=== PATIENT | female | born 1955 | race Caucasian/White ===

== ENCOUNTER 2022-07-21 12:57 | Outpatient (CLI) | payer MEDICARE, BC, SELFPAY ==
[2022-07-21 10:41] LABS: Albumin* 4.1 g/dL (3.3-5.0); Chloride* 106 mmol/L (96-114); Potassium* 4.9 mmol/L (3.6-5.1); Sodium* 139 mmol/L (135-149)
[2022-07-21 10:43] LABS: Creatinine* 0.9 mg/dL (0.5-1.5); Estimated Glomerular Filt Rate 70 ml/min
[2022-07-21 10:44] LABS: Alkaline Phosphatase* 113 U/L (40-150); Aspartate Amino Transferase* 28 U/L (12-35); Bilirubin Total* 0.4 mg/dL (0.1-1.5); Blood Urea Nitrogen* 19 mg/dL (7-30); Carbon Dioxide* 24 mmol/L (20-32); Glucose* 100 mg/dL (60-115); Total Protein* 6.7 g/dL (6.0-8.3); Triglycerides* 215 mg/dL (40-149)
[2022-07-21 10:45] LABS: Alanine Aminotransferase* 22 U/L (4-35); Calcium* 9.5 mg/dL (8.4-10.6); HDL Cholesterol* 53 mg/dL (>=50)
[2022-07-21 10:58] LABS: Vitamin D 25 Hydroxy* 35 ng/mL (30-80)
[2022-07-21 19:10] LABS: Cholesterol* 206 mg/dL (90-199); LDL Cholesterol Calculated 110 mg/dL (<100)
== END 2022-07-21 12:58 | disposition home or self-care (01) ==
PROVIDERS: PCP Family Medicine; Visit Provider Family Medicine
DX: E03.9 Hypothyroidism, unspecified (principal); M85.80 Other specified disorders of bone density and structure, unspecified site; Z13.6 Encounter for screening for cardiovascular disorders
CPT/HCPCS: 80053; 80061; 82306; 84443

== ENCOUNTER 2022-08-03 09:09 | Outpatient (CLI) | payer MEDICARE, BC, SELFPAY ==
[2022-08-10 08:48] LABS: Cryptosporidium by PCR Not Detected; Cyclospora cayetanensis by PCR Not Detected; Dientamoeba fragilis by PCR Not Detected; Entamoeba histolytica by PCR Not Detected; Giardia by PCR Not Detected
[2022-08-10 14:38] LABS: Ova and Parasite, Fecal Negative (Negative)
== END 2022-08-03 09:10 | disposition home or self-care (01) ==
LOC: NFLDREF 09:13
PROVIDERS: PCP Family Medicine; Visit Provider Family Medicine
DX: R19.7 Diarrhea, unspecified (principal)
CPT/HCPCS: 87045; 87046; 87177; 87209; 87427; 87505

== ENCOUNTER 2023-09-19 08:27 | Outpatient (CLI) | payer MEDICARE, BC, SELFPAY | END 2023-09-19 08:28 | disposition home or self-care (01) | LOC: NFLDREF 10-02 08:18 | PROVIDERS: PCP Family Medicine; Referring Provider Family Medicine; Visit Provider Family Medicine | DX: E78.5 Hyperlipidemia, unspecified (principal); E03.9 Hypothyroidism, unspecified; I10 Essential (primary) hypertension; Z79.899 Other long term (current) drug therapy | CPT/HCPCS: 80053; 80061; 82306; 84439; 84443 ==

== ENCOUNTER 2023-11-24 14:51 | Outpatient (CLI) | payer MEDICARE, BC, SELFPAY ==
--- NOTE | 2023-11-24 14:00 | XR_ITS ---
Patient: BRIANA TAYLOR Facility:?[facility] Patient ID:?[id number] Site Patient ID:?[id number]. Site :?[id number] Study:?DEXA-Bone Density -11/24/2023 3:50:12 PM Ordering Physician:JEROD Final Report: Please note the prior exam is not relevant to the current exam as the heigh/weight of the patient was entered incorrectly on the prior study thus negating relevant comparison information. Current height (in): 67.5. Weight (lb): 220. Menopause age: 49. Ethnicity: White. 1. Have you had a previous hip or vertebral fracture? No. 2. Have you had any fractures during your adult life which did not result from significant trauma (e.g., auto accident)? No. 3. Did either of your parents have a hip fracture? No. 4. Do you smoke? No. 5. Have you ever taken Glucocorticoids? No. 6. Do you have rheumatoid arthritis? No. 7. Do you have secondary osteoporosis? No. 8. Do you drink 3 or more alcoholic drinks per day? No. 9. Are you being treated for osteoporosis? No. 10. Have you ever taken any of the following medications: Actonel, Evista, Fosamax, Miacalcin, Reclast, Boniva, Forteo, HRT (i.e. estrogen/hormone therapy), Protelos, Prolia, Vitamin D, Calcium, other ? please specify. ANSWER: Yes, vitamin D. 11. Do you have any of the following medical conditions: Anorexia or bulimia, asthma or emphysema, end stage renal disease, hyperparathyroidism, any seizure disorders, cancer, inflammatory bowel diseases, hysterectomy, other ? please specify. ANSWER: No. 12. What was your maximum height (inches)? 67.5. 13. Do you perform weight bearing exercise regularly? Yes. 14. Do you regularly consume dairy products? Yes. 15. Do you drink caffeinated beverages? Yes. 16. At what age did your period start? 12. 17. Are you premenopausal? No. 18. How many full term pregnancies have you had? 2. 19. Have you ever missed your period for more than 6 months in a row (not including or menopause)? No. TECHNIQUE: Bone mineral density study was performed using the [employer]. FINDINGS: The results of the study expressed as bone mineral density (BMD) are as follows: Lumbar spine L1 to L4: BMD: 1.070 g/cm2. T-score: 0.2. Z-score: 2.3. Neck Left: BMD: 0.628 g/cm2. T-score: -2.0. Z-score: -0.2. Right: BMD: 0.688 g/cm2. T-score: -1.4. Z-score: 0.3. Total Left: BMD: 0.772 g/cm2. T-score: -1.4. Z-score: 0.1. Right: BMD: 0.766 g/cm2. T-score: -1.4. Z-score: 0.0. IMPRESSION: Osteopenia. *Comparison exams done prior to 12/2019 were performed on different unit, [employer]. COMPARISON: Compared with scan of 07/08/2021, the bone mineral density has increased by 2.9 percent at the spine. Compared with scan of 03/26/2019, the bone mineral density has decreased by 7.7 percent at the spine. FRAX 10-year Fracture Risk Major Osteoporotic Fracture: 11 percent Hip Fracture: 1.8 percent Reported Risk Factors: [place] () Neck BMD= 0.628, BMI= 33.9 Joe Gruber M.D. Diagnostic Radiologist [email or web address] D& Transcribed: 3:20 p.m. DESTIN/Dictated by: Joe Gruber MD @ 11/28/2023 8:33:00 AM DESTIN/Dictated by: Joe Gruber MD @ 11/28/2023 8:33:00 AM DESTIN/Dictated by: Joe Gruber MD @ 11/28/2023 8:33:00 AM Signed by:Liat Gruber MD @11/30/2023 11:12:09 AM (Electronic Signature)
--- OUTSIDE RECORDS SUMMARY | 2023-11-24 14:53 | XMS_ITS | Encounter Summary ---
Author Name Unknown Organization [facility] Address [address] [place] [address] Care Team Providers Care After School Program Coordinator Name Role Phone Unavailable Primary Care Provider Unavailabl e Reason for Referral * MRI/CAT/PET Scan (Routine) - Closed Specialty Diagnoses / Procedures Referred By Contac t Referred To Contact Radiology Diagnoses Hernia Abdominal Wall Procedures CT Abdomen Pelvis with IV Contrast CT Abdomen Pelvis without IV Contrast Rosa Flores M.D. [address] [place] [phone] [facility] Referral ID Status Reason Start Date Expiration Date Visits Re quested Visits Authorized [id number] Closed 09/29/2023 09/28/2024 1 1 Reason for Visit * MRI/CAT/PET Scan (Routine) - Closed Specialty Diagnoses / Procedures Referred By Contac t Referred To Contact Radiology Diagnoses Hernia Abdominal Wall Procedures CT Abdomen Pelvis with IV Contrast CT Abdomen Pelvis without IV Contrast Rosa Flores M.D. [address] [place] [phone] [facility] Referral ID Status Reason Start Date Expiration Date Visits Re quested Visits Authorized [id number] Closed 09/29/2023 09/28/2024 1 1 Encounter Details Date Type Department Care Team (Late st Contact Info) Description 10/10/2023 10:39 AM CDT - 10/10/2023 11:59 PM CDT Hospital Encounter Department of Radiology, [facility], in [place], [place] [address] [place] [phone] Rosa Flores M.D. [address] [place] [phone] Hernia Abdominal Wall Discharge Disposition: Home or Self Care Social History Tobacco Use Types Packs/Day Years Used Date Smoking Tobacco: Former Cigarettes 1 11 0 01/03/1972 - 01/04/1983 Passive Smoke Exposure: Never Smokeless Tobacco: Never Comments:smoked from then not again Alcohol Use Standard Drinks/Week Comments No 0 (1 standard drink = 0.6 oz pur e alcohol) Humiliation, Afraid, Rape, and Kick questionnair e Answer Date Recorded Within the last year, have y ou been afraid of your partner or ex-partner? No 03/08/2022 Within the last year, have y ou been humiliated or emotionally abused in other ways by your partner or ex-partner? No Within the last year, have y ou been kicked, hit, slapped, or otherwise physically hurt by your partner or ex-partner? No 03/08/2022 Within the last year, have y ou been raped or forced to have any kind of sexual activity by your partner or ex-partner? No 03/08/2022 Social Connection and Isolat ion Panel [NHANES] Answer Date Recorded In a typical week, how many times do you talk on the phone with family, friends, or neighbors? Three times a week 03/08/2022 How often do you get togethe r with friends or relatives? Twice a week 03/08/2022 How often do you attend chur or yarsani services? Never 03/08/2022 Do you belong to any clubs o r organizations such as buddhist groups, unions, fraternal or athletic groups, or school groups? Yes 03/08/2022 How often do you attend meet ings of the clubs or organizations you belong to? More than 4 times per year 03/08/2022 Are you , , di vorced, , never , or living with a partner? 03/08/2022 AUDIT-C Answer Date Recorded Q1: How often do you have a drink containing alc ohol? Never 03/08/2022 Average Number of Drinks Not on file 022 Frequency of Binge Drinking Not on file 02/16 Overall Financial Resource Strain (CARDIA) Answe r Date Recorded How hard is it for you to pa y for the very basics like food, housing, medical care, and heating? Not hard at all 04/05/2023 [facility] of Occupat ional Health - Occupational Stress Questionnaire Answer Date Recorded Do you feel stress - tense, restless, nervous, or anxious, or unable to sleep at night because your mind is troubled all the time - these days? Not at all 03/08/2022 Exercise Vital Sign Answer Date Recorde d On average, how many days pe r week do you engage in moderate to strenuous exercise (like a brisk walk)? 6 days 04/05/2023 On average, how many minutes do you engage in exercise at this level? 40 min 04/05/2023 Hunger Vital Sign Answer Date Recorded Within the past 12 months, y ou worried that your food would run out before you got the money to buy more. Never true 04/05/20 23 Within the past 12 months, t he food you bought just didn't last and you didn't have money to get more. Never true 04/05/2023 PRAPARE - Transportation Answer Date Re corded In the past 12 months, has l ack of transportation kept you from medical appointments or from getting medications? No 03/18 In the past 12 months, has l ack of transportation kept you from meetings, work, or from getting things needed for daily living? No 04/05/2023 Nutrition Answer Date Recorded Nutrition: EVOO Fat Source Yes 04/05 On average, how many serving s of fruits and vegetables do you eat per day (serving size is equal to 1 cup or approximately the size of a tennis ball)? 0-2 04/05/2023 Dental Answer Date Recorded Dental: Regular Dentist Yes 03/08/20 Employment Answer Date Recorded Employment status Retired 04/05/2023 Housing Stability Answer Date Recorded What is your living situation today? I have a [facility] place to live 04/05/2023 Education Answer Date Recorded What is the highest level of school you have completed or the highest degree you have received? Bachelor's degree (e.g., BA, AB, BS) 06/21/2019 Sex and Gender Information Value Date Recorded Sex Assigned at Female 05/25/2018 8:31 PM METHODS SPECIALIST Gender Identity Female 05/25/2018 8:31 PM METHODS SPECIALIST Sexual Orientation Straight 05/25/2018 8: 31 PM METHODS SPECIALIST documented as of this encounter Medications at Time of Discharge Medication Sig Dispensed Refills Start Date End Date acetaminophen (TYLENOL) 325 mg tablet Take 2 tablets (650 mg total) by mouth every 6 (six) hours as needed for pain. 06/16/2019 atenolol (TENORMIN) 50 mg tablet Take 1 tablet by mouth daily. 08/04/2015 calcium carbonate 1000 mg (400 mg calcium) chewable tablet Chew 1 tablet daily. cholecalciferol (VITAMIN D3) 2,000 Unit capsule Take 1 capsule by mouth daily. 08/04/2015 cranberry extract (CRAN-MAX) 500 mg capsule capsule Take 200 mg by mouth daily. 04/08/2022 ketoconazole (NIZORAL) 2 % creamIndications:Dermat itis Seborrheic Apply topically as directed. otic 15 g 2 10/15/2020 ketoconazole (NIZORAL) 2 % shampooIndications:Derm atitis Seborrheic Apply topically 3 (three) times a week. Apply to damp skin, lather, leave on 5 minutes, and rinse 120 mL 6 02/27/2021 L.acidoph-L.bulg-B.bif- S.therm (BACID) 1 billion cell- 250 mg per tablet Take 1 tablet by mouth 2 (two) times a day with meals. levothyroxine (SYNTHROID, LEVOTHROID) 125 mcg tablet Take 125 mcg by mouth every morning before breakfast. 2 11/11/2018 omeprazole (PriLOSEC) [address] capsule Take 1 capsule by mouth daily. 08/04/2015 psyllium (METAMUCIL) 0.52 gram capsule Take 0.52 g by mouth as needed. 2 in the evening triamcinolone (KENALOG) 0.1 % creamIndications:Dermat itis Seborrheic Apply 1 application topically 2 (two) times a day as needed (Rash). Otic. Apply to itchy areas in the ear twice daily as needed 60 g 1 10/15/2020 documented as of this encounter Plan of Treatment Upcoming Encounters Date Type Department Care Team (Latest Contact Info) Description 11/29/2023 7:40 AM CDT Hospital Encounter Post Anesthesia Care Unit in [place], [place] [address] [place] [phone] Marcial Macdonald M.D. [address] [place] [phone] 11/29/2023 7:40 AM CDT - 11/29/2023 11:56 AM CDT Surgery [facility] [address] [place] [phone] Marcial Macdonald M.D. [address] [place] [phone] ROBOTIC-ASSISTED REPAIR HERNIA VENTRAL Scheduled Procedures Name Priority Associated Diagnoses Date/Ti me ROBOTIC-ASSISTED REPAIR MINOR IA VENTRAL Hernia Ventral 11/29/2023 7:40 AM CDT documented as of this encounter Procedures Procedure Name Priority Date/Time Associated Diagnosis Comments CT ABDOMEN PELVIS WITH IV CONTRAST RAD - Routine (most inpatients and all outpatients) 10/10/2023 11:53 AM CDT Hernia Abdominal Wall documented in this encounter Results * CT Abdomen Pelvis with IV Contrast (10/10/2023 11:53 AM CDT) Anatomical Region Laterality Modality Abdomen, Pelvis, Abdominal R ST LOS, Abdominal ARZ LOS, Abdominal FLA LOS N/A Computed Tomograp hy, Computed Tomography 10/10/2023 11:4 7 AM CDT Impressions 10/10/2023 12:11 PM CDT 1. Diastases and thinning of the rectus muscles with several small fat- containing midline ventral hernias. Narrative 10/10/2023 12:11 PM CDT EXAM: ??CT ABDOMEN PELVIS WITH IV CONTRAST COMPARISON: ??06/12/2019 FINDINGS: ?? Mild bronchiectasis in the lung bases. Cholecystectomy. Fatty infiltration in the pancreas. Thinning and diastases of the rectus muscles. Small fat-containing umbilical hernia and lobulated paraumbilical hernia. More superiorly in the midline there are some tiny fat-containing defects. Degenerative changes in the spine. Otherwise negative. Procedure Note Mika Day M.D. - 10/10/2023 EXAM: CT ABDOMEN PELVIS WITH IV CONTRAST COMPARISON: 06/12/2019 FINDINGS: Mild bronchiectasis in the lung bases. Cholecystectomy. Fatty infiltration in the pancreas. Thinning and diastases of the rectus muscles. Small fat-containingumbilical hernia and lobulated paraumbilical hernia. More superiorly inthe midline there are some tiny fat-containing defects. Degenerative changes in the spine. Otherwise negative. IMPRESSION: 1. Diastases and thinning of the rectus muscles with several smallfat-containing midline ventral hernias. Rosa Flores M.D. IMG CT PROCEDURE S documented in this encounter Visit Diagnoses Diagnosis Hernia Abdominal Wall Hernia Ventral documented in this encounter Administered Medications Inactive Administered Medications - up to 3 most recent administrations Medication Order MAR Action Action Date Dose Rate Site iohexoL 300 mg iodine/mL solution 1-200 mL (OMNIPAQUE) 1-200 mL, intravenous, Once in imaging, contrast, Starting on Tue10/10/23 at 1101, For 1 dose, Imaging Protocol Orders, Dose per Radiant Medication Guidelines Given 10/10/2023 11:33 AM CDT 140 mL sodium chloride (PF) 0.9 % injection 1-100 mL 1-100 mL, intravenous, Once, On 10/10/23 at 1130, For 1 dose, Imaging Protocol Orders, Dose per Radiant Medication Guidelines Given 10/10/2023 11:34 AM CDT 50 mL documented in this encounter
--- OUTSIDE RECORDS SUMMARY | 2023-11-24 14:53 | XMS_ITS | Encounter Summary ---
Author Name Unknown Organization [facility] Address [address] [place] [address] Care Team Providers Care Electrical Cad Technician Name Role Phone Unavailable Primary Care Provider Unavailabl e Reason for Referral * MRI/CAT/PET Scan (Routine) - Closed Specialty Diagnoses / Procedures Referred By Contac t Referred To Contact Radiology Diagnoses Hernia Abdominal Wall Procedures CT Abdomen Pelvis with IV Contrast CT Abdomen Pelvis without IV Contrast Rosa Flores M.D. [address] [place] [phone] [facility] Referral ID Status Reason Start Date Expiration Date Visits Re quested Visits Authorized [id number] Closed 09/29/2023 09/28/2024 1 1 Encounter Details Date Type Department Care Team (Late st Contact Info) Description 09/29/2023 Orders Only Division of Trauma Critical Care and General Surgery in [place], [place] [address] [place] [phone] Ann Marie Gutierrez RAndreyNAndrey [address] [place] [phone] Hernia Abdominal Wall (Primary Dx) Social History Tobacco Use Types Packs/Day Years [...] 03/08/2022 How often do you attend chur ch or synagogue services? Never 03/08/2022 Do you belong to any clubs o r organizations such as mandaeism groups, unions, fraternal or athletic groups, or [...] and heating? Not hard at all 04/05/2023 Georgian Kidder of Occupat ional [facility] - Occupational Stress Questionnaire Answer Date Recorded [...] your living situation today? I have a [facility] place to live 04/05/2023 Education Answer Date Recorded What is the highest level of school you have completed or the highest degree you have received? Bachelor's degree (e.g., BA, AB, BS) 06/21/2019 Sex and Gender Information Value Date Recorded Sex Assigned at Female 05/25/2018 8:31 PM VULCANIZING MACHINE OPERATOR Gender Identity Female 05/25/2018 8:31 PM VULCANIZING MACHINE OPERATOR Sexual Orientation Straight 05/25/2018 8: 31 PM VULCANIZING MACHINE OPERATOR documented as of this encounter Plan of Treatment Upcoming Encounters Date Type Department Care Team (Latest Contact Info) Description 11/29/2023 7:40 AM CDT Hospital Encounter Post Anesthesia Care Unit in [place], [place] [address] [place] [phone] Marcial Macdonald M.D. [address] [place] [phone] 11/29/2023 7:40 AM CDT - 11/29/2023 11:56 AM CDT Surgery [facility] [address] [place] [phone] Marcial Macdonald M.D. [address] [place] [phone] ROBOTIC-ASSISTED REPAIR HERNIA VENTRAL Scheduled Procedures Name Priority Associated Diagnoses Date/Ti az ROBOTIC-ASSISTED REPAIR MINOR IA VENTRAL Hernia Ventral 11/29/2023 7:40 AM CDT documented as of this encounter Results * CT Abdomen Pelvis [...] with several smallfat-containing midline ventral hernias. Rosa MONCADA CT PROCEDURE S documented in this encounter Visit Diagnoses Diagnosis Hernia Abdominal Wall- Primary Hernia Abdominal Wall Hernia Ventral documented in this encounter
--- OUTSIDE RECORDS SUMMARY | 2023-11-24 14:53 | XMS_ITS ---
Author Name Unknown Organization [facility] Address [address] [place] [address] Care Team Providers Care Orthodontic Lab Technician Name Role Phone Unavailable Unavailable Unavailable Surgery Details Not on file Complications Check Surgery Details section. Procedure Estimated Blood Loss Check Surgery Details section. Procedure Findings Check Surgery Details section. Procedure Specimens Taken Check Surgery Details section.
--- OUTSIDE RECORDS SUMMARY | 2023-11-24 14:53 | XMS_ITS ---
Author Name Unknown Organization [facility] Address [address] [place] [address] Care Team Providers Care Insert Operator Name Role Phone Unavailable Primary Care Provider Unavailabl e Active Problems Problem Noted Date Diagnosed Date Paresthetica Meralgia Bilateral 04/21/2020 Paresthesias Feet 04/21/2020 Myalgia 04/21/2020 Hypomagnesemia 06/09/2019 Hypophosphatemia 06/09/2019 Perforation Intestine 06/08/2019 Obesity Body Mass Index 30-39.9 Adult 06/08/2019 Gastroesophageal Reflux Disease 06/08/2019 Hypothyroidism 04/23/2017 Atrial Fibrillation Paroxysmal 04/23/2017 Cancer Breast Elevated Risk 08/07/2015 Cancer Breast Family History 08/04/2015 Malignant Neoplasm Of Trunk Basal Cell 5 Polyp Colon Adenomatous 06/28/2013 Overview: Overview: Colonoscopy 06/2013 polyp repeat in 5 years Colonoscopy 06/2018 polyps, repeat in 5 years Apnea Sleep Obstructive 03/09/2013 Overview: Overview: Polysomnogram completed 03/09/13. Problem list name updated by automated process. Provider to review Current Oncology Plans No current plan information found. Past Plans No past plan information found. Radiation Treatments * No radiation treatments are documented for this patient in [facility]. Treatments may have been administered in another system. Lifetime Dose Tracking * Chemical Lifetime Dose Automatic Entry Manual Entr y Radiation 246 mGy 246 mGy 0 mGy Fluoro Time 5.16 minutes 5.16 minutes 0 minutes Resolved Problems Problem Noted Date Diagnosed Date Resolved Date Sepsis 06/08/2019 06/09/2019
--- OUTSIDE RECORDS SUMMARY | 2023-11-24 14:53 | XMS_ITS | Encounter Summary ---
Author Name Unknown Organization [facility] Address [address] [place] [address] Care Team Providers Care Reading Coach Name Role Phone Unavailable Primary Care Provider Unavailabl e Reason for Visit * Reason Comments Hernia * Outpatient (Routine) - Closed Specialty Diagnoses / Procedures Referred By Emerson t Referred To Contact General Surgery Diagnoses Hernia Abdominal Wall Lilliam Cuevas M.D., D.Wilner. [address] [place] [phone] [facility] Referral ID Status Reason Start Date Expiration Date Visits Re quested Visits Authorized [id number] Closed 08/30/2023 02/28/2025 1 1 Encounter Details Date Type Department Care Team (Late st Contact Info) Description 10/10/2023 1:30 PM CDT Comprehensive Visit Division of Trauma Critical Care and General Surgery in [place], [place] [address] [place] [phone] Rosa Flores M.D. [address] [place] [phone] Hernia Abdominal Wall Social History Tobacco Use Types Packs/Day Years [...] often do you attend chur ch or mormonism services? Never 03/08/2022 Do you belong to any clubs o r organizations such as baptism groups, unions, fraternal or athletic groups, or [...] and heating? Not hard at all 04/05/2023 [facility] ional [facility] - Occupational Stress [...] your living situation today? I have a [facility] place to live 04/05/2023 Education Answer Date Recorded What is the highest level of school you have completed or the highest degree you have received? Bachelor's degree (e.g., BA, AB, BS) 06/21/2019 Sex and Gender Information Value Date Recorded Sex Assigned at Female 05/25/2018 8:31 PM RISK CONTROL ANALYST Gender Identity Female 05/25/2018 8:31 PM RISK CONTROL ANALYST Sexual Orientation Straight 05/25/2018 8: 31 PM RISK CONTROL ANALYST documented as of this encounter Consult Notes * Rosa Flores M.D. - 10/10/2023 1:30 PM CDT Seeing patient for Montserratian-cheese ventral hernia. Healthy 68-year-old woman who presents with multiple abdominal wall bulges that are increasingly uncomfortable. No episodes of incarceration or strangulation. Surgical history is significant for an upper midline abdominal laparotomy for duodenal perforation.She underwent Sravan patch repair and cholecystectomy. Since that time she has had slow progressionof abdominal wall bulges. Patient is not anticoagulated. CT abdomen/pelvis reviewed in detail: The patient has multiple Montserratian cheese midline ventral hernia defects. They do not contain bowel. There are fairly limited in size at each level. Impression/plan: 68-year-old woman who presents with Montserratian-cheese ventral hernia. I had a long discussion with the patient. I think she would optimally be managed with use of a robotic approach with mesh. I had my partner Dr. Macdonald see the patient with me. He is 1 of our robotic surgeons. They discussed the options in detail. The patient has been listed for November 29, 2023. The procedure, risks, benefits and alternatives were discussed in detail. All questions answered. No educational barriers identified. Patient is full code. They understand the role residents play in the team approach to surgery. documented in this encounter Plan of Treatment Upcoming Encounters Date Type Department Care Team (Latest Contact Info) Description 11/29/2023 7:40 AM CDT Hospital Encounter Post Anesthesia Care Unit in [place], [place] [address] [place] [phone] Marcial Macdonald M.D. [address] [place] [phone] 11/29/2023 7:40 AM CDT - 11/29/2023 11:56 AM CDT Surgery [facility] OR [address] [place] [phone] Marcial Macdonald M.D. [address] [place] [phone] ROBOTIC-ASSISTED REPAIR HERNIA VENTRAL Scheduled Procedures Name Priority Associated Diagnoses Date/Ti me ROBOTIC-ASSISTED REPAIR MINOR IA VENTRAL Hernia Ventral 11/29/2023 7:40 AM CDT documented as of this encounter Visit Diagnoses Diagnosis Hernia Abdominal Wall Hernia Ventral documented in this encounter
--- OUTSIDE RECORDS SUMMARY | 2023-11-24 14:53 | XMS_ITS | Encounter Summary ---
Author Name Unknown Organization [facility] Address [address] [place] [address] Care Team Providers Care Press Setter Name Role Phone Unavailable Primary Care Provider Unavailabl e Encounter Details Date Type Department Care Team (Late st Contact Info) Description 10/06/2023 Clinical Communication Division of Trauma Critical Care and General Surgery in [place], [place] [address] [place] [phone] Rosa Flores M.D. [address] [place] [phone] Social History Tobacco Use Types Packs/Day Years [...] often do you attend chur ch or scientology services? Never 03/08/2022 Do you belong to any clubs o r organizations such as muslim groups, unions, fraternal or athletic groups, or [...] and heating? Not hard at all 04/05/2023 [facility] - Occupational Stress [...] your living situation today? I have a [facility] place to live 04/05/2023 Education Answer Date Recorded What is the highest level of school you have completed or the highest degree you have received? Bachelor's degree (e.g., BA, AB, BS) 06/21/2019 Sex and Gender Information Value Date Recorded Sex Assigned at Female 05/25/2018 8:31 PM CLIMATOLOGY TEACHER Gender Identity Female 05/25/2018 8:31 PM CLIMATOLOGY TEACHER Sexual Orientation Straight 05/25/2018 8: 31 PM CLIMATOLOGY TEACHER documented as of this encounter Plan of Treatment Upcoming Encounters Date Type Department Care Team (Latest Contact Info) Description 11/29/2023 7:40 AM CDT Hospital Encounter Post Anesthesia Care Unit in [place], [place] [address] [place] [phone] Marcial Macdonald M.D. [address] [place] [phone] 11/29/2023 7:40 AM CDT - 11/29/2023 11:56 AM CDT Surgery [facility] OR [address] [place] [phone] Marcial Macdonald M.D. [address] [place] [phone] ROBOTIC-ASSISTED REPAIR HERNIA VENTRAL Scheduled Procedures Name Priority Associated Diagnoses Date/Ti sd ROBOTIC-ASSISTED REPAIR MINOR IA VENTRAL Hernia Ventral 11/29/2023 7:40 AM CDT documented as of this encounter Visit Diagnoses Not on filedocumented in this encounter
--- OUTSIDE RECORDS SUMMARY | 2023-11-24 14:53 | XMS_ITS | Referral Summary ---
Author Name Unknown Organization [facility] Address [address] [place] [address] Care Team Providers Care Night Filler Name Role Phone Unavailable Primary Care Provider Unavailabl e Source Comments Patient records contain information from all sites at [facility]. For routine questions regarding patient records, call [phone] during business hours, M-F 8:00 AM - 5:00 PM Central Time. Record requests for emergency care only can be directed to [phone] at any time.[facility] Encounters Date Type Department Care Team Description 10/10/2023 10:39 AM CDT - 10/10/2023 11:59 PM CDT Hospital Encounter Department of Radiology, [facility], in [place], [place] [address] [place] [phone] Rosa Flores M.D. Hernia Abdominal Wall Discharge Disposition: Home or Self Care 10/10/2023 1:30 PM CDT Comprehensive Visit Division of Trauma Critical Care and General Surgery in [address] [phone] Rosa Flores M.D. Hernia Abdominal Wall 10/06/2023 Clinical Communication Division of Trauma Critical Care and General Surgery in [address] [phone] Rosa Flores M.D. 09/29/2023 Orders Only Division of Trauma Critical Care and General Surgery in [place], [place] [address] [place] [phone] Ann Marie Gutierrez R.N. Hernia Abdominal Wall (Primary Dx) 09/26/2023 3:00 PM CDT Office Visit Breast Diagnostic Clinic in [place], [place] [address] [place] [phone] Mara Gan M.D., Ph.D. Follow Up Exam (Primary Dx) 09/23/2023 2:00 PM ON SITE WASTEWATER SYSTEMS TECHNICIAN Clinical Communication Virtual Review in [place], [place] [address] [place] [phone] Pre-visit Intake 08/30/2023 11:00 AM ON SITE WASTEWATER SYSTEMS TECHNICIAN Office Visit Department of Dermatology in [place], [place] [address] [place] [phone] Nathan Lynn M.D. Cancer Skin Basal Cell Personal History (Primary Dx); Keratosis Seborrheic; Nevi Multiple; Angioma Mace; Tag Skin; Hernia Abdominal Wall Discharge Disposition: Home or Self Care 08/29/2023 9:30 AM ON SITE WASTEWATER SYSTEMS TECHNICIAN Clinical Communication Virtual Review in [place], [place] [address] [place] [phone] Pre-visit Intake from Last 3 Months Allergies Active Allergy Reactions Criticality Noted Date Comments Penicillins Other (see comments) 05/09/2003 Pt not sure.....said something as a child Medications Medication Sig Dispensed Refills Start Date End Date Status omeprazole (PriLOSEC) [address] capsule Take 1 capsule by mouth daily. 08/04/2015 Active cholecalciferol (VITAMIN D3) 2,000 Unit capsule Take 1 capsule by mouth daily. 08/04/2015 Active atenolol (TENORMIN) 50 mg tablet Take 1 tablet by mouth daily. 08/04/2015 Active levothyroxine (SYNTHROID, LEVOTHROID) 125 mcg tablet Take 125 mcg by mouth every morning before breakfast. 2 11/11/2018 Active psyllium (METAMUCIL) 0.52 gram capsule Take 0.52 g by mouth as needed. 2 in the evening Active acetaminophen (TYLENOL) 325 mg tablet Take 2 tablets (650 mg total) by mouth every 6 (six) hours as needed for pain. 06/16/2019 Active Additional Information Patient taking differently: 1,000 mgoral Every 6 hours PRN, pain, Reported on 03/29/2023 ketoconazole (NIZORAL) 2 % creamIndications:Abel matitis Seborrheic Apply topically as directed. otic 15 g 2 10/15/2020 Active triamcinolone (KENALOG) 0.1 % creamIndications:Abel matitis Seborrheic Apply 1 application topically 2 (two) times a day as needed (Rash). Otic. Apply to itchy areas in the ear twice daily as needed 60 g 1 10/15/2020 Active ketoconazole (NIZORAL) 2 % shampooIndications:D ermatitis Seborrheic Apply topically 3 (three) times a week. Apply to damp skin, lather, leave on 5 minutes, and rinse 120 mL 6 02/27/2021 Active cranberry extract (CRAN-MAX) 500 mg capsule capsule Take 200 mg by mouth daily. 04/08/2022 Active calcium carbonate 1000 mg (400 mg calcium) chewable tablet Chew 1 tablet daily. Acti ve L.acidoph-L.bulg-B.b if-S.therm (BACID) 1 billion cell- 250 mg per tablet Take 1 tablet by mouth 2 (two) times a day with meals. Active Active Problems Problem Noted Date Diagnosed Date [...] updated by automated process. Provider to review Resolved Problems Problem Noted Date Diagnosed Date Resolved Date Sepsis 06/08/2019 06/09/2019 Immunizations Name Administration Dates Next Due DTaP, Unspecified 02/05/2010 H1N1 All Forms 08/08/2009 HZV (ZOSTAVAX) 06/05/2015 Influenza (IM) Preservative Free 014,05/11/2013,06/05/2012,2010 Influenza high dose QV(65 ye ars or older) (PF) 04/07/2023,03/12/2022,03/29/2020 Influenza, Quadrivalent, Adj uvanted, Preservative Free 04/17/2021 Influenza, Seasonal, Injectable 05/05/2007 Influenza, Unspecified 05/16/2017,05/06/2015 PPSV23 06/09/2021 Pneumococcal, Unspecified 09/23/2023(Def erred: Other - discussed uncertain at this time if will proceed) RZV (SHINGRIX) 11/26/2019,06/29/2019 Tdap 03/29/2021,03/29/2020,02/05/2010 influenza vaccine QV(FLUBLOK ) (18 years or older) (PF) 03/13/2022,05/17/2019 influenza vaccine quad (FLUZONE/FLUARIX) (6 months and older)(PF) 05/04/2020,04/17/2020,05/03/2018,2016,05/06/2015,08/08/2009 Social History Tobacco Use Types Packs/Day Years Used Date Smoking Tobacco: Former Cigarettes 1 11 0 01/03/1972 - 01/04/1983 Passive Smoke Exposure: Never Smokeless Tobacco: Never Tobacco Cessation:Counseling Given: Not Answered Comments:smoked from [id number] then not again Alcohol Use Standard Drinks/Week [...] often do you attend chur ch or restorationism services? Never 03/08/2022 Do you belong to any clubs o r organizations such as hindu groups, unions, fraternal or athletic groups, or [...] Average Number of Drinks Not on file Frequency of Binge Drinking Not on file 02/16 Overall Financial Resource Strain (CARDIA) Answe r Date Recorded How hard is it for you to pa y for the very basics like food, housing, medical care, and heating? Not hard at all 04/05/2023 [facility] of Occupat ional Health - Occupational Stress [...] your living situation today? I have a [facility] place to live 04/05/2023 Education Answer Date Recorded What is the highest level of school you have completed or the highest degree you have received? Bachelor's degree (e.g., BA, AB, BS) 06/21/2019 Sex and Gender Information Value Date Recorded Sex Assigned at Female 05/25/2018 8:31 PM ON SITE WASTEWATER SYSTEMS TECHNICIAN Gender Identity Female 05/25/2018 8:31 PM ON SITE WASTEWATER SYSTEMS TECHNICIAN Sexual Orientation Straight 05/25/2018 8: 31 PM ON SITE WASTEWATER SYSTEMS TECHNICIAN Last Filed Vital Signs Vital Sign Reading Time Taken Comments Blood Pressure 142/83 09/26/2023 2:46 PM CDT Pulse 69 09/26/2023 2:46 PM CDT Temperature 36.8 ??C (98.2 ??F) 06/16/2019 11:[address] Respiratory Rate 16 06/16/2019 11:00 AM ON SITE WASTEWATER SYSTEMS TECHNICIAN Oxygen Saturation 93% 06/16/2019 11:00 AM ON SITE WASTEWATER SYSTEMS TECHNICIAN Inhaled Oxygen Concentration - - Weight 102 kg (224 lb 8.6 oz) 09/26/2023 2:46 PM CDT Height 170.4 cm (5' 7.09) 09/26/2023 2:46 PM CD T Body Mass Index 35.08 09/26/2023 2:46 PM CDT Plan of Treatment Upcoming Encounters Date Type Department Care Team (Latest Contact Info) Description 11/29/2023 7:40 AM CDT Hospital Encounter Post Anesthesia Care Unit in [place], [place] [address] [place] [phone] Marcial Macdonald M.D. [address] [place] [phone] 11/29/2023 7:40 AM CDT - 11/29/2023 11:56 AM CDT Surgery [facility] OR [address] [place] [phone] Marcial Macdonald M.D. [address] [place] [phone] ROBOTIC-ASSISTED REPAIR HERNIA VENTRAL Scheduled Procedures Name Priority Associated Diagnoses Date/Ti me ROBOTIC-ASSISTED REPAIR MINOR IA VENTRAL Hernia Ventral 11/29/2023 7:40 AM CDT Procedures Procedure Name Priority Date/Time Associated Diagnosis Comments CT ABDOMEN PELVIS WITH IV CONTRAST RAD - Routine (most inpatients and all outpatients) 10/10/2023 11:53 AM CDT Hernia Abdominal Wall BI BREAST SCREENING BILATERAL WITH TOMOSYNTHESIS RAD - Routine (most inpatients and all outpatients) 04/05/2023 10:50 AM CDT Screening Mammogram Average Risk Patient EXTI BASIC METABOLIC PANEL, S/P Routine 02/23/2021 6:47 AM CDT from Last 3 Months or Most Recently Relevant to Health Maintenance Results * CT Abdomen Pelvis with IV [...] smallfat-containing midline ventral hernias. Rosa Flores M.D. IM CT PROCEDURE S * BI Breast Screening Bilateral with Tomosynthesis (04/05/2023 10:50 AM CDT) Anatomical Region Laterality Modality Breast, Breast Imaging RST L OS, Breast Imaging ARZ LOS, Breast Imaging FLA LOS Bilateral Mammography 04/05/2023 12:3 9 PM CDT Impressions 04/05/2023 1:53 PM CDT Negative. RECOMMENDATION: ??Annual Screening Mammogram ASSESSMENT: ??BI-RADS: 1: Negative. Narrative 04/05/2023 1:53 PM CDT EXAM: ??BI BREAST SCREENING BILATERAL WITH TOMOSYNTHESIS Current study was evaluated with a Computer Aided Detection (CAD) system. INDICATION: ??Screening mammogram. COMPARISON: ??Prior exam(s) were available and reviewed for comparison. DENSITY: ??b. There are scattered areas of fibroglandular density. FINDINGS: ??No findings of malignancy. ??No significant change since prior exam. Procedure Note Ashley Medina M.D. - 04/05/2023 EXAM: BI BREAST SCREENING BILATERAL WITH TOMOSYNTHESIS Current study was evaluated with a Computer Aided Detection (CAD) system. INDICATION: Screening mammogram. COMPARISON: Prior exam(s) were available and reviewed for comparison. DENSITY: b. There are scattered areas of fibroglandular density. FINDINGS: No findings of malignancy. No significant change since priorexam. IMPRESSION: Negative. RECOMMENDATION: Annual Screening Mammogram ASSESSMENT: BI-RADS: 1: Negative. Mara Gan M.D., Ph.D. IMG BI PROCE DURES from Last 3 Months or Most Recently Relevant to Health Maintenance
--- OUTSIDE RECORDS SUMMARY | 2023-11-24 14:53 | XMS_ITS | Clinical Summary ---
Author Name Unknown Organization [facility] Address [address] [place] [address] Care Team Providers Care Delivery Driver/Customer Service Name Role Phone Unavailable Primary Care Provider Unavailabl e Source Comments Patient records contain information from all sites at [facility]. For routine questions regarding patient records, call [phone] during business hours, M-F 8:00 AM - 5:00 PM Central Time. Record requests for emergency care only can be directed to [phone] at any time.[facility] Allergies Active Allergy Reactions Criticality Noted Date [...] Diagnosed Date Resolved Date Sepsis 06/08/2019 06/09/2019 Encounters Date Type Department Care Team Description 10/10/2023 1:30 PM CDT Comprehensive Visit Division of Trauma Critical Care and General Surgery in [address] [phone] Rosa Flores M.D. Hernia Abdominal Wall 10/10/2023 10:39 AM CDT - 10/10/2023 11:59 PM CDT Hospital Encounter Department of Radiology, [facility], in [place], [place] [address] [place] [phone] Rosa Flores M.D. Hernia Abdominal Wall Discharge Disposition: Home or Self Care 10/06/2023 Clinical Communication Division of Trauma Critical Care and General Surgery in [address] [phone] Rosa Flores M.D. 09/29/2023 Orders Only Division of Trauma Critical Care and General Surgery in [address] [phone] Ann Marie Gutierrez, RDonovan Hernia Abdominal Wall (Primary Dx) 09/26/2023 3:00 PM CDT Office Visit Breast Diagnostic Clinic in [address] [phone] Mara Gan M.D., Ph.D. Follow Up Exam (Primary Dx) 09/23/2023 2:00 PM SSN/SSBN ASSISTANT NAVIGATOR Clinical Communication Virtual Review in [place], [place] [address] [place] [address] Pre-visit Intake 08/30/2023 11:00 AM SSN/SSBN ASSISTANT NAVIGATOR Office Visit Department of Dermatology in [place], [place] [address] [place] [phone] Nathan Lynn M.D. Cancer Skin Basal Cell Personal History (Primary Dx); Keratosis Seborrheic; Nevi Multiple; Angioma Mace; Tag Skin; Hernia Abdominal Wall Discharge Disposition: Home or Self Care 08/29/2023 9:30 AM SSN/SSBN ASSISTANT NAVIGATOR Clinical Communication Virtual Review in [place] [address] [place] [phone] Pre-visit Intake from Last 3 Months Immunizations Name Administration Dates Next Due DTaP, [...] quad (FLUZONE/FLUARIX) (6 months and older)(PF) 05/04/2020,04/17/2020,05/03/2018,2016,05/06/2015,08/08/2009 Family History Medical History Relation Name Comments Learning disorder Brother 1 Yaakov Vick Dyslexia Obesity Brother 2 Kain Nicanor Parkinson disease Father Jazzy Nicanor Diagnosed at age 87 Parkinsonism Father Dudley Nicanor Late onset Skin cancer Father Jazzy Vick Basal cell Breast cancer Maternal Grandmother Mary Escoto Age 76 Breast cancer Mother Debbie Nicanor Age 76 Dementia Mother Debbie Nicanor Lung cancer Mother's Brother Joe Escoto Age 86 Other cancer Mother's Brother Joe Wallislula Bladder can cer Asthma Mother's Sister Fannie Wallislula Breast cancer Mother's Sister Fannie Escoto Age 74 Other cancer Paternal Grandfather Kristofer Nicanor Liver c ancer Alcohol abuse Sister Kim Vick Sober since Endometrial cancer Sister Kim Vick Age 64 Psychiatric Sister Kim Vick Paranoid schizo phrenia Learning disorder Son Nic Peguero Dyslexia Relation Name Status Comments Brother 1 Yaakov Vick Brother 2 Kain Vick Father Jazzy Vick Maternal Grandmother Mary Escoto Mother Debbie Vick Mother's Brother Joe Escoto Mother's Sister Fannie Escoto Paternal Grandfather Kristofer Vick Sister Kim Vick Son Nic Peguero Social History Tobacco Use Types Packs/Day Years Used Date Smoking Tobacco: Former Cigarettes 1 11 0 01/03/1972 - 01/04/1983 Passive Smoke Exposure: Never Smokeless Tobacco: Never Tobacco Cessation:Counseling Given: Not Answered Comments:smoked from [id number] then not again Alcohol Use Standard Drinks/Week [...] often do you attend chur ch or presybeterian services? Never 03/08/2022 Do you belong to any clubs o r organizations such as zoroastrianism groups, unions, fraternal or athletic groups, or [...] and heating? Not hard at all 04/05/2023 [facility] - Occupational [...] Sex Assigned at Female 05/25/2018 8:31 PM SSN/SSBN ASSISTANT NAVIGATOR Gender Identity Female 05/25/2018 8:31 PM SSN/SSBN ASSISTANT NAVIGATOR Sexual Orientation Straight 05/25/2018 8: 31 PM SSN/SSBN ASSISTANT NAVIGATOR Last Filed Vital Signs Vital Sign Reading Time Taken Comments Blood Pressure 142/83 09/26/2023 2:46 PM CDT Pulse 69 09/26/2023 2:46 PM CDT Temperature 36.8 ??C (98.2 ??F) 06/16/2019 11:[address] Respiratory Rate 16 06/16/2019 11:00 AM SSN/SSBN ASSISTANT NAVIGATOR Oxygen Saturation 93% 06/16/2019 11:00 AM SSN/SSBN ASSISTANT NAVIGATOR Inhaled Oxygen Concentration - - Weight 102 kg (224 lb 8.6 oz) 09/26/2023 2:46 PM CDT Height 170.4 cm (5' 7.09) 09/26/2023 2:46 PM CD T Body Mass Index 35.08 09/26/2023 2:46 PM CDT Plan of Treatment Upcoming Encounters Date Type Department Care Team (Latest Contact Info) Description 11/29/2023 7:40 AM CDT Hospital Encounter Post Anesthesia Care Unit in [place], [place] [address] [place] [phone] Marcial Macdonald M.D. [address] [place] [phone] 11/29/2023 7:40 AM CDT - 11/29/2023 11:56 AM CDT Surgery [facility] OR [address] [place] [phone] Marcial Macdonald M.D. [address] [place] [phone] ROBOTIC-ASSISTED REPAIR HERNIA VENTRAL Scheduled Procedures Name Priority Associated Diagnoses Date/Ti me ROBOTIC-ASSISTED REPAIR MINOR IA VENTRAL Hernia Ventral 11/29/2023 7:40 AM CDT Health Maintenance Due Date Last Done Comments Bone Density Scan (Osteoporo sis Screen) 1954 CT Colonography 1955 Cologuard 1955 Hepatitis C Screening 1955 Thyroid Stimulating Hormone (TSH) test for thyroid function 1954 Depression Screening (Annual PHQ-2) 07/18/2023 COVID-19 Vaccine (8 2022-2 4 season) 2023 04/12/2023, 11/25/2022, 04/23/2022, Additional history exists Fasting Glucose for Diabetes Screening 02/24/2024 02/23/2021, 06/15/2019, 06/15/2019, Additional history exists Mammogram 04/05/2024 04/05/2023, 03/18, 03/09/2022, Additional history exists Colonoscopy 12/20/2025 12/20/2022, 11/2022 (Performed elsewhere), 10/16/2012 (Performed elsewhere), Additional history exists Colorectal Cancer Surveillance 12/20/2025 DTaP,Tdap,and Td Vaccines (5 - Td or Tdap) 03/29/2031 03/29/2021, 03/29/2020, 02/05/2010, Additional history exists Cervical Cancer Screening Discontinued 2014 (Performed elsewhere) Zoster Vaccines Completed 11/26/2019, 06/17, 06/05/2015 Influenza Vaccine Completed 04/07/2023, , 03/12/2022, Additional history exists Pneumococcal vaccine (65+ years) Completed 06/07/20, 06/09/2021 Fall Risk Screen (Annual) Completed 10/10/2023 Procedures Procedure Name Priority Date/Time Associated Diagnosis [...] smallfat-containing midline ventral hernias. Rosa Flores M.D. IMHarley CT PROCEDURE S * BI Breast Screening [...]
--- OUTSIDE RECORDS SUMMARY | 2023-11-24 14:54 | XMS_ITS | Referral Summary ---
Author Name Unknown Organization [facility] Address [address] [place] [address] Care Team Providers Care Med Asst Name Role Phone Kinsey Washington MD Primary Care Provider + Wayne Cottrell APRN CHILD DAY CARE PROVIDER Unavailable [phone] Allergies Active Allergy Reactions Criticality Noted Date Comments Penicillins 02/26/2013 Medications Medication Sig Dispensed Refills Start Date End Date Status atenolol (TENORMIN) 50 MG tablet Take 50 mg by mouth daily Active omeprazole (PRILOSEC) 10 MG capsule Take 1 capsule by mouth daily Active levothyroxine (SYNTHROID, LEVOTHROID) 125 MCG tablet Take 1 tablet by mouth daily Active ORDER FOR DME Use your CPAP device as directed by your provider. Active VITAMIN D, CHOLECALCIFEROL, PO Take 1,000 Units by mouth Active ketoconazole (NIZORAL) 2 % external cream Apply topically daily Active calcium carbonate antacid 1000 MG CHEW Take 1 chew tab by mouth daily Active ipratropium (ATROVENT) 0.06 % nasal spray SPRAY 2 SPRAYS INTO EACH NOSTRIL 3 TIMES A DAY FOR 4 DAYS 10/21/2022 Active Active Problems Problem Noted Date Diagnosed Date Insomnia 06/30/2023 Meralgia paresthetica 04/21/2020 Obesity with body mass index 30 or greater 06/08 Gastroesophageal reflux disease 06/08/2019 Hypothyroidism (acquired) 04/23/2017 Obstructive sleep apnea 03/09/2013 Overview: Polysomnogram completed 03/09/13. Problem list name updated by automated process. Provider to review Immunizations Name Administration Dates Next Due COVID-19 Bivalent 18+ (Moderna) 04/23/2022 COVID-19 MONOVALENT 12+ (Pfizer) 04/17/2021,03/02/2021,09/21/2020 DTaP, Unspecified 02/05/2010 Flu, Unspecified 05/16/2017,05/06/2015 Influenza (H1N1) 08/08/2009 Influenza (IIV3) PF 05/05/2007 Influenza Vaccine 18-64 (Flublok) 05/17/2019 Influenza Vaccine 65+ (FLUAD) 04/17/2021 Influenza Vaccine 65+ (Fluzone HD) 03/12/2022 Influenza Vaccine >6 months,quad, PF ,04/17/2020,05/03/2018,2016,05/06/2015,08/08/2009 Influenza, seasonal, injectable, PF 05/18,05/11/2013,06/05/2012,2010 Pneumococcal 23 valent 06/09/2021 TDAP (Adacel,Boostrix) 03/29/2021,03/29/2020, Zoster Vaccine, Unspecified (historical) 11/26/2019 Zoster recombinant adjuvante d (SHINGRIX) 06/29/2019 Zoster vaccine, live 06/05/2015 Social History Tobacco Use Types Packs/Day Years Used Date Smoking Tobacco: Former Cigarettes Q uit: 07/18/2000 Smokeless Tobacco: Never Tobacco Cessation:Counseling Given: Not Answered Alcohol Use Standard Drinks/Week Comments No 0 (1 standard drink = 0.6 oz pur e alcohol) PHQ-2 Answer Date Recorded PHQ-2 Score 0 03/02/2023 Adolescent Education Answer Date Record ed Getting School Help Needed Not on file 04/13 Sex and Gender Information Value Date Recorded Sex Assigned at Female 06/12/2023 12:41 PM FITTINGS FINISHER Gender Identity Female 04/10/2021 1:29 PM CDT Sexual Orientation Straight 04/10/2021 1: 29 PM CDT Last Filed Vital Signs Vital Sign Reading Time Taken Comments Blood Pressure 136/72 06/30/2023 1:00 PM FITTINGS FINISHER Pulse 68 06/30/2023 1:00 PM FITTINGS FINISHER Temperature 37 ??C (98.6 ??F) 02/25/2015 2:13 PM CDT Respiratory Rate 16 10/10/2018 10:08 AM CDT Oxygen Saturation 94% 06/30/2023 1:00 PM FITTINGS FINISHER Inhaled Oxygen Concentration - - Weight 103.4 kg (228 lb) 06/30/2023 1:00 PM FITTINGS FINISHER Height 172.7 cm (5' 7.99) 06/30/2023 1:00 PM CS T Body Mass Index 34.68 06/30/2023 1:00 PM FITTINGS FINISHER Plan of Treatment Not on file Procedures Procedure Name Priority Date/Time Associated Diagnosis Comments MA SCREENING BILATERAL W/ LAURA Routine 04/05/2023 10:50 AM CDT from Last 3 Months or Most Recently Relevant to Health Maintenance Care Teams Med Asst Relationship Specialty Start Date End Date Kinsey Washington MD [facility] [address] [place] [address] PCP - General 06/12/23 Wayne Cottrell, YARD BRAKEMAN CHILD DAY CARE PROVIDER [address] [place] [address] (work) Assigned Sleep Provider 07/09/23
--- OUTSIDE RECORDS SUMMARY | 2023-11-24 14:54 | XMS_ITS | Encounter Summary ---
Author Name Unknown Organization [facility] Address [address] [place] [address] Care Team Providers Care Vocational Psychologist Name Role Phone Kinsey Washington MD Primary Care Provider + Wayne Cottrell APRN WELDER SETTER ELECTRON BEAM MACHINE Unavailable [phone] Encounter Details Date Type Department Care Team (Late st Contact Info) Description 07/13/2023 MyC Medical Advice [facility] [address] [place] [phone] Kentrell Curry Social History Tobacco Use Types Packs/Day Years Used Date Smoking Tobacco: Former Cigarettes Q uit: 07/18/2000 Smokeless Tobacco: Never Alcohol Use Standard Drinks/Week Comments No 0 (1 standard drink = 0.6 oz pur e alcohol) PHQ-2 Answer Date Recorded PHQ-2 Score 0 03/02/2023 Adolescent Education Answer Date Record ed Getting School Help Needed Not on file 04/13 Sex and Gender Information Value Date Recorded Sex Assigned at Female 06/12/2023 12:41 PM LIBRARIAN SPECIAL COLLECTIONS Gender Identity Female 04/10/2021 1:29 PM CDT Sexual Orientation Straight 04/10/2021 1: 29 PM CDT documented as of this encounter Plan of Treatment Not on file documented as of this encounter Visit Diagnoses Not on filedocumented in this encounter Additional Health Concerns Assessment Noted Time PHQ-9 Depression Total Score: 3 06/15/20 18 1:12 PM LIBRARIAN SPECIAL COLLECTIONS documented as of this encounter Care Teams Vocational Psychologist Relationship Specialty Start Date End Date Kinsey Washington MD [facility] [address] [place] [address] PCP - General 06/12/23 Wayne Cottrell APRN CNP [address] [facility] [address] [place] [address] Assigned Sleep Provider 07/09/23 documented as of this encounter
--- OUTSIDE RECORDS SUMMARY | 2023-11-24 14:54 | XMS_ITS | Encounter Summary ---
Author Name Unknown Organization [facility] Address [address] [place] [address] Care Team Providers Care Boot Liner Maker Name Role Phone Krista Mensah MD Primary Care Provider Linda Maciel MD Unavai lable Linda Maciel MD Unavai lable Kinsey Washington MD Primary Care Provider + Wayne Cottrell APRN IN SERVICE COORDINATOR Unavailable [phone] Encounter Details Date Type Department Care Team (Late st Contact Info) Description 04/06/2021 MyC Medical Advice M [address] [phone] Mara Churchill, WAGE AND SALARY ADMINISTRATOR Social History Tobacco Use Types Packs/Day Years Used Date Smoking Tobacco: Former Cigarettes Q uit: 07/18/2000 Smokeless Tobacco: Never Alcohol Use Standard Drinks/Week Comments No 0 (1 standard drink = 0.6 oz pur e alcohol) Sex and Gender Information Value Date Recorded Sex Assigned at Female 06/12/2023 12:41 PM HISTOLOGY TEACHER Gender Identity Female 04/10/2021 1:29 PM CDT Sexual Orientation Straight 04/10/2021 1: 29 PM CDT documented as of this encounter Plan of Treatment Not on file documented as of this encounter Visit Diagnoses Not on filedocumented in this encounter Additional Health Concerns Assessment Noted Time PHQ-9 Depression Total Score: 3 06/15/20 18 1:12 PM HISTOLOGY TEACHER documented as of this encounter Care Teams Boot Liner Maker Relationship Specialty Start Date End Date Krista Mensah MD [facility] [address] [place] [address] PCP - General 02/27/13 06/11/23 Kinsey Washington MD [facility] [address] [place] [address] PCP - General 06/12/23 Linda Maciel MD [address] [place], [place] [address] Assigned Sleep Provider 05/09/20 Linda Maciel MD [address] [place], [place] [address] Assigned Sleep Provider 03/05/2307/08 Wayne Cottrell, [place] IN SERVICE COORDINATOR [address] [place], [place] [address] Assigned Sleep Provider 07/09/23 documented as of this encounter
--- OUTSIDE RECORDS SUMMARY | 2023-11-24 14:54 | XMS_ITS | Encounter Summary ---
Author Name Unknown Organization [facility] Address [address] [place] [address] Care Team Providers Care Central Supply Clerk Name Role Phone Unavailable Primary Care Provider Unavailabl e Reason for Visit * Reason Onset Date Comments Pre-visit Intake 09/23/2023 Encounter Details Date Type Department Care Team (Latest Contact Info) Description 09/23/2023 2:00 PM OCEAN TRANSPORTATION INTERMEDIARY Clinical Communication Virtual Review in [address] [phone] Pre-visit Intake Social History Tobacco Use Types Packs/Day Years Used Date Smoking Tobacco: Former Cigarettes 1 11 0 01/03/1972 - 01/04/1983 Passive Smoke Exposure: Never Smokeless Tobacco: Never Tobacco Cessation:Counseling Given: Not Answered Comments:smoked from [id number] then not again Alcohol Use Standard Drinks/Week [...] often do you attend chur ch or episcopal services? Never 03/08/2022 Do you belong to any clubs o r organizations such as yarsanism groups, unions, fraternal or athletic groups, or [...] and heating? Not hard at all 04/05/2023 [facility] - Occupational Stress Questionnaire Answer Date [...] your living situation today? I have a [facility] place to live 04/05/2023 Education Answer Date Recorded What is the highest level of school you have completed or the highest degree you have received? Bachelor's degree (e.g., BA, AB, BS) 06/21/2019 Sex and Gender Information Value Date Recorded Sex Assigned at Female 05/25/2018 8:31 PM OCEAN TRANSPORTATION INTERMEDIARY Gender Identity Female 05/25/2018 8:31 PM OCEAN TRANSPORTATION INTERMEDIARY Sexual Orientation Straight 05/25/2018 8: 31 PM OCEAN TRANSPORTATION INTERMEDIARY documented as of this encounter Plan of Treatment Upcoming Encounters Date Type Department Care Team (Latest Contact Info) Description 11/29/2023 7:40 AM CDT Hospital Encounter Post Anesthesia Care Unit in [place], [place] [address] [place] [phone] Marcial Macdonald M.D. [address] [place] [phone] 11/29/2023 7:40 AM CDT - 11/29/2023 11:56 AM CDT Surgery [facility] OR [address] [place] [phone] Marcial Macdonald M.D. [address] [place] [phone] ROBOTIC-ASSISTED REPAIR HERNIA VENTRAL Scheduled Procedures Name Priority Associated Diagnoses Date/Ti mt ROBOTIC-ASSISTED REPAIR MINOR IA VENTRAL Hernia Ventral 11/29/2023 7:40 AM CDT documented as of this encounter Visit Diagnoses Not on filedocumented in this encounter
--- OUTSIDE RECORDS SUMMARY | 2023-11-24 14:54 | XMS_ITS | Clinical Summary ---
Author Name Unknown Organization [facility] Address [place], [place] [address] Care Team Providers Care Straightening Press Operator Helper Name Role Phone Kinsey Washington MD Primary Care Provider + Allergies Active Allergy Reactions Criticality Noted Date Comments Penicillins Hives 06/21/2013 Medications Medication Sig Dispensed Refills Start Date End Date Status levothyroxine (SYNTHROID) 125 mcg tablet Take by mouth. 3 12/27/2014 Active omeprazole (PRILOSEC) 20 mg Delayed-Release capsule TK 1 C PO QD 3 06/18/2016 Active cholecalciferol (VITAMIN D-3) 2,000 unit capsule Take 1 capsule by mouth once daily. 0 08/12/2016 Active cranberry fruit 500 mg chew Take by mouth. 0 07/13/2019 Active medication order composer CPAP 0 07/13/2019 Active psyllium husk (METAMUCIL ORAL) Take 2 capsules. by mouth at bedtime if needed. Active atenoloL (TENORMIN) 50 mg tabletIndications:Pa roxysmal A-fib (HC) Take 1 Tablet (50 mg) by mouth once daily. 45 Tablet 03/31/2022 Active famotidine (PEPCID) 20 mg tabletIndications:Hi story of colon polyps Take 1 Tablet (20 mg) by mouth two times daily. 180 Tablet 2 11/27/2022 Active Active Problems Problem Noted Date Diagnosed Date Paroxysmal A-fib 04/23/2017 Hypothyroidism (acquired) 04/23/2017 Adenomatous colon polyp 06/28/2013 Overview: Colonoscopy 06/2013 polyp repeat in 5 years Colonoscopy 06/2018 polyps, repeat in 5 years Colonoscopy 12/2022 SSA, repeat in 5 years, propofol Immunizations Name Administration Dates Next Due COVID-19 vaccine (Instaradio 30mcg/0.3mL) P F, MDV 10/12/2020,09/21/2020 Influenza Virus, Unspecified 05/06/2015 Tdap, Unspecified 02/05/2010 Zoster (Zostavax-ZVL, live) 06/05/2015 Social History Tobacco Use Types Packs/Day Years Used Date Smoking Tobacco: Former Cigarettes 0.5 15 1 986 - 2000 Smokeless Tobacco: Never Tobacco Cessation:Counseling Given: Yes Alcohol Use Standard Drinks/Week Comments No 0 (1 standard drink = 0.6 oz pur e alcohol) Social Connections Answer Date Recorded Frequency of Communication with Friends and Fami ly Not on file 07/18/2021 Financial Resource Strain Answer Date R ecorded Difficulty of Paying Living Expenses Not on file 07/18/2021 Difficulty of Paying Living Expenses Not on file 07/18/2021 Sex and Gender Information Value Date Recorded Sex Assigned at Female 09/19/2020 8:31 AM CERAMIC TILE MECHANIC Gender Identity Female 09/19/2020 8:31 AM CERAMIC TILE MECHANIC Sexual Orientation Straight 09/19/2020 8: 31 AM CERAMIC TILE MECHANIC Obstetrics History Last Filed Vital Signs Vital Sign Reading Time Taken Comments Blood Pressure 144/61 10/06/2022 4:10 PM CDT Pulse 66 10/06/2022 4:10 PM CDT Temperature 36.6 ??C (97.8 ??F) 02/23/2021 1:30 PM CD T Respiratory Rate 16 02/23/2021 1:30 PM CDT Oxygen Saturation 98% 10/06/2022 4:10 PM CDT Inhaled Oxygen Concentration - - Weight 103.5 kg (228 lb 2.8 oz) 10/06/2022 4:10 PM CDT Height 171.5 cm (5' 7.5) 03/31/2022 9:53 AM CDT Body Mass Index 35.21 03/31/2022 9:53 AM CDT Plan of Treatment Health Maintenance Due Date Last Done Comments Depression screening for age 12+ 1966 Hepatitis C screening for ag e 18-79 1972 Lipids for age 45-75 1999 Mammogram for age 45-75 1999 Zoster (shingles) series for age 50+ (2 of 3) 07/31/2015 06/05/2015 DEXA/DXA scan for age 65+ 2019 Medicare Wellness for age 65+ 2019 Pneumococcal series for age 65+ (1 of 1 - PCV) 2019 Tetanus booster 02/06/2020 02/05/2010 COVID-19 vaccine series (2022-24 season) 2023 11/25/2022, 04/23/2022, 04/17/2021, Additional history exists BMI (ht and wt on same day) for age 18+ 03/31/2023 03/31/2022, 05/19/2021, 12/23/2020, Additional history exists Influenza for age 65+ 03/18/2024 05/06/2015 Colonoscopy through age 75 12/21/202712/20, 12/20/2022, 12/20/2022, Additional history exists Tdap Completed 02/05/2010 Procedures Procedure Name Priority Date/Time Associated Diagnosis Comments COLONOSCOPY SCREENING Routine 12/20/2022 12:00 AM CDT History of colon polyps from Last 3 Months or Most Recently Relevant to Health Maintenance Results * COLONOSCOPY SCREENING (12/20/2022 12:00 AM CDT) Amparo Doyle RN GI PROCEDURE ORD from Last 3 Months or Most Recently Relevant to Health Maintenance Advance Directives * Full Code (Latest Code Status on File) Date Activated Date Inactivated Comments 02/23/2021 10:51 AM 02/23/2021 8:20 PM Question Answer Comments Code Status Discussion: Not Discussed Care Teams Straightening Press Operator Helper Relationship Specialty Start Date End Date Kinsey Washington MD [address] [place] [address] PCP - General Family Practice 04/23/17
--- OUTSIDE RECORDS SUMMARY | 2023-11-24 14:54 | XMS_ITS | Encounter Summary ---
Author Name Unknown Organization [facility] Address [address] [place] [address] Care Team Providers Care Vacuum Cleaner Repair Person Name Role Phone Unavailable Primary Care Provider Unavailabl e Reason for Referral * Outpatient (Routine) - Closed Specialty Diagnoses / Procedures Referred By Contac t Referred To Contact General Surgery Diagnoses Hernia Abdominal Wall Lilliam Cuevas M.D., D.Wilner. [address] [place] [phone] [facility] Referral ID Status Reason Start Date Expiration Date Visits Re quested Visits Authorized [id number] Closed 08/30/2023 02/28/2025 1 1 EKEEPING MANAGER Reason for Visit * Appointment Request (Routine) - Closed Specialty Diagnoses / Procedures Referred By Contac t Referred To Contact Dermatology Diagnoses Screening Examination Skin Cancer Referral ID Status Reason Start Date Expiration Date Visits Re quested Visits Authorized [id number] Closed 07/04/2023 07/03/2024 1 1 Encounter Details Date Type Department Care Team ([facility] st Contact Info) Description 08/30/2023 11:00 AM HOUSEKEEPING MANAGER Office Visit Department of Dermatology in [place], [place] [address] [place] [phone] Nathan Lynn M.D. 200 [place] [address] Cancer Skin Basal Cell Personal History (Primary [...] often do you attend chur ch or anabaptist services? Never 03/08/2022 Do you belong to any clubs o r organizations such as anabaptist groups, unions, fraternal or athletic groups, or [...] and heating? Not hard at all 04/05/2023 [facility] - Occupational Stress Questionnaire Answer Date [...] money to buy more. Never true 04/05/20 Within the past 12 months, t he [...] your living situation today? [facility] 04/05/2023 Education Answer Date Recorded What is the highest level of school you have completed or the highest degree you have received? Bachelor's degree (e.g., BA, AB, BS) 06/21/2019 Sex and Gender Information Value Date Recorded Sex Assigned at Female 05/25/2018 8:31 PM HOUSEKEEPING MANAGER Gender Identity Female 05/25/2018 8:31 PM HOUSEKEEPING MANAGER Sexual Orientation Straight 05/25/2018 8: 31 PM HOUSEKEEPING MANAGER documented as of this encounter Consult Notes * Nathan Lynn M.D. - 08/30/2023 11:00 AM CST Correspondence to: Nathan Lynn M.D. Patient seen and discussed with supervising brand sales consultant, Dr. Cuevas, who evaluated the patient and concurs with the assessment and plan. CHIEF COMPLAINT / REASON FOR VISIT History of NMSC SUBJECTIVE HISTORY OF PRESENT ILLNESS Ms. Misti Peguero is a 68 y.o. female who presents today for a skin cancer screening examination. Ms. Misti Peguero has a history of nonmelanoma skin cancer. She was last seen in Dermatology on 10/15/2020 for a full skin check that was reassuring. Today, the patient presents for a full skin check and noted a lesion on her left frontal hairline that is asymptomatic. She also reports of hernia on her abdomen that she developed after she had an abdominal wall surgery in 2019. She would like referral to General surgery. She also noted skin tags a long her neckline and would like removal. No other concerns. Ms. Misti Peguero tries to be diligent with photoprotective measures. Allergies Allergen Reactions Penicillins Other (see comments) Pt not sure.....said something as a child PAST MEDICAL HISTORY History of BCC on the right lower abdomen in 2014 OBJECTIVE PHYSICAL EXAM General: Awake, alert, in no acute distress, and with appropriate affect. Eyes: No scleral injection or icterus. No eyelid abnormalities. Skin: I have examined the scalp, face, neck, chest, abdomen, back, bilateral upper extremities, andbilateral lower extremities, and buttocks. -Hess skin type II -On sun-exposed areas there is a background of diffuse mottled pigmentation with elastotic skin change. -Primarily over the trunk and also on the extremities, there are scattered small brown round macules and papules; many of these are examined dermoscopically and reveal regular symmetric network and appear consistent with banal-appearing nevi. -Skin colored firm papule on left frontal hairline c/w fibrous papule of face -Scattered waxy stuck brown-moreno papules and plaques consistent with seborrheic keratoses. -Over the trunk, there are a few bright red dome shaped papules consistent with mace angiomas. -Ill-defined light brown to black macule/patch on sun-exposed areas consistent with solar lentigines -Soft, pedunculated flesh colored papules c/w acrochordons scattered on neck. ASSESSMENT / PLAN #1 Dermatoheliosis #2 History of nonmelanoma skin cancer Past history of skin cancer places this patient at increased risk of future NMSC. Sun protection and sun avoidance were reviewed with the patient. Educational materials were provided regarding skin self-examination, the warning signs and symptoms of skin cancer, and the proper use of sunscreens. Beena ropriate SPF sunscreen was recommended. I would recommend a full skin cancer screening examination with an appropriately trained clinician yearly. #3 Banal-appearing nevi None of the patient's nevi reach the clinical threshold for biopsy. I recommend continued sun protection, self-skin examinations, and observation. Should any of the patient's nevi change in size, color, texture, or shape or develop symptoms such as itching or bleeding, I recommend an immediate return visit for reassessment. #4 Abdominal wall hernia Referral to General surgery provided. The patient understands that she may need preoperative evaluation as well as further laboratory workup which needs to be ordered by her PCP. #5 Seborrheic keratoses #6 Mace angiomas #7 Solar lentigines The benign nature of the skin lesion(s) was discussed with the patient. No treatment is required. Irecommend continued observation. Should symptoms or changes develop related to this condition, I would recommend a return visit for reassessment. #8 Acrochordons The benign nature of the skin lesion(s) was discussed with the patient. No treatment is required. Irecommend continued observation. Should symptoms or changes develop related to this condition, I would recommend a return visit for reassessment. The patient would like complete removal of the skin tags on her neckline; given that they are asymptomatic and do not appear to be inflamed or irritated,treatment for the skin tags are considered cosmetic. Discussed pricing with the patient. She would like to observe at this time. All questions answered. It was a pleasure to participate in your dermatologic care. Please do not hesitate to contact me if you have any questions. INFORMED CONSENT Discussed the risks, benefits, alternatives, and the necessity of other members of the healthcare team participating in the procedure. All questions answered and consent given. PATIENT EDUCATION Ready to learn. No apparent learning barriers were identified. Learning preferences include listening. Explained diagnosis and treatment plan; patient/guardian of patient expressed understanding of the content. EKEEPING MANAGER Associated attestation - Lilliam Cuevas M.D., DDallas. - 08/30/2023 3:11 PM HOUSEKEEPING MANAGER I saw and evaluated the patient, participating in the snowden portions of the service. I reviewed the resident/fellow???s note. I agree with the resident/fellow???s findings and plan. documented in this encounter Plan of Treatment Upcoming Encounters Date Type Department Care Team (Latest Contact Info) Description 11/29/2023 7:40 AM CDT Hospital Encounter Post Anesthesia Care Unit in [place] [id number] [place] [phone] Marcial Macdonald M.D. [address] [place] [phone] 11/29/2023 7:40 AM CDT - 11/29/2023 11:56 AM CDT Surgery [facility] MAIN OR [address] [place] [phone] Mracial Macdonald M.D. [address] [place] [phone] ROBOTIC-ASSISTED REPAIR HERNIA VENTRAL Scheduled Procedures Name Priority Associated Diagnoses Date/Ti me ROBOTIC-ASSISTED REPAIR MINOR IA VENTRAL Hernia Ventral 11/29/2023 7:40 AM CDT Scheduled Referrals Name Type Priority Associated Diagnoses Orde r Schedule General Surgery - Hernia consult (clinic) Outpatient Referral Routine Hernia Abdominal Wall Expected: 08/30/2023 (Approximate), Expires: 11/27/2024 documented as of this encounter Visit Diagnoses Diagnosis Cancer Skin Basal Cell Personal History- Primary Keratosis Seborrheic Nevi Multiple Angioma Mace Tag Skin Hernia Abdominal Wall Hernia Ventral documented in this encounter
--- OUTSIDE RECORDS SUMMARY | 2023-11-24 14:54 | XMS_ITS | Clinical Summary ---
Author Name Unknown Organization [facility] Address [address] [place] [address] Care Team Providers Care Icing Coater Name Role Phone Kinsey Washington MD Primary Care Provider + Wayne Cottrell APRN CLINICAL CYTOPATHOLOGIST Unavailable [phone] Allergies Active Allergy Reactions Criticality Noted Date [...] Sex Assigned at Female 06/12/2023 12:41 PM ENGRAVING PRESS OPERATOR Gender Identity Female 04/10/2021 1:29 PM CDT Sexual Orientation Straight 04/10/2021 1: 29 PM CDT Last Filed Vital Signs Vital Sign Reading Time Taken Comments Blood Pressure 136/72 06/30/2023 1:00 PM ENGRAVING PRESS OPERATOR Pulse 68 06/30/2023 1:00 PM ENGRAVING PRESS OPERATOR Temperature 37 ??C (98.6 ??F) 02/25/2015 2:13 PM CDT Respiratory Rate 16 10/10/2018 10:08 AM CDT Oxygen Saturation 94% 06/30/2023 1:00 PM ENGRAVING PRESS OPERATOR Inhaled Oxygen Concentration - - Weight 103.4 kg (228 lb) 06/30/2023 1:00 PM ENGRAVING PRESS OPERATOR Height 172.7 cm (5' 7.99) 06/30/2023 1:00 PM CS T Body Mass Index 34.68 06/30/2023 1:00 PM ENGRAVING PRESS OPERATOR Plan of Treatment Health Maintenance Due Date Last Done Comments ADVANCE CARE PLANNING 1954 ANNUAL REVIEW OF HM ORDERS 1954 CT COLONOGRAPHY 1954 DEXA 1954 FIT 1954 FLEX SIG 1954 GLUCOSE 1954 TSH W/FREE T4 REFLEX 1954 sDNA (Cologuard) 1954 HEPATITIS C SCREENING 1972 LIPID 1994 RSV VACCINE ( & 60+) (1 - 1-dose 60+ series) 2014 FALL RISK ASSESSMENT 2019 MEDICARE ANNUAL WELLNESS VISIT 2019 ZOSTER IMMUNIZATION (3 of 3) 01/21/2020 11/26/2019, 11/26/2019, 06/29/2019, Additional history exists PHQ-2 (once per calendar year) 2023 03/02/2023, 06/15/2018 COVID-19 Vaccine ( season) 2023 04/12/2023, 11/25/2022, 11/25/2022, Additional history exists MAMMO SCREENING 04/05/2025 04/05/2023, 03/18, 03/09/2022, Additional history exists DTAP/TDAP/TD IMMUNIZATION (5 - Td or Tdap) 03/29/2031 03/29/2021, 03/29/2020, 02/05/2010, Additional history exists COLONOSCOPY 12/20/2032 12/20/2022 COLORECTAL CANCER SCREENING 12/20/2032 INFLUENZA VACCINE Completed 04/07/2023, , 03/12/2022, Additional history exists Pneumococcal Vaccine: 65+ Years Completed 06/07/2023, 06/09/2021 HPV IMMUNIZATION Aged Out No longer e ligible based on patient's age to complete this topic IPV IMMUNIZATION Aged Out No longer e ligible based on patient's age to complete this topic MENINGITIS IMMUNIZATION Aged Out No l onger eligible based on patient's age to complete this topic RSV MONOCLONAL ANTIBODY Aged Out No l onger eligible based on patient's age to complete this topic Procedures Procedure Name Priority Date/Time Associated Diagnosis Comments MA SCREENING BILATERAL W/ LAURA Routine 04/05/2023 10:50 AM CDT from Last 3 Months or Most Recently Relevant to Health Maintenance Care Teams Icing Coater Relationship Specialty Start Date End Date Kinsey Washington MD [facility] [address] [place] [address] PCP - General 06/12/23 Wayne Cottrell, POLITICAL CONSULTANT CLINICAL CYTOPATHOLOGIST [address] [place] [address] Assigned Sleep Provider 07/09/23
--- OUTSIDE RECORDS SUMMARY | 2023-11-24 14:54 | XMS_ITS | Encounter Summary ---
Author Name Unknown Organization [facility] Address [address] [place] [address] Care Team Providers Care Travel Attendants Name Role Phone Unavailable Primary Care Provider Unavailabl e Reason for Visit * Reason Comments Establish Care * Outpatient (Routine) - Closed Specialty Diagnoses / Procedures Referred By Emerson rangel Referred To Contact Breast Clinic Mara Gan M.D., Ph.D. [address] [place] [phone] [facility] Referral ID Status Reason Start Date Expiration Date Visits Re quested Visits Authorized [id number] Closed 04/18/2023 04/17/2026 1 1 Encounter Details Date Type Department Care Team (Late st Contact Info) Description 09/26/2023 3:00 PM CDT Office Visit Breast Diagnostic Clinic in [place], [place] [address] [place] [phone] Mara Gan M.D., Ph.D. [address] [place] [phone] Follow Up Exam (Primary Dx) Social History Tobacco Use Types [...] often do you attend chur ch or orthodoxy services? Never 03/08/2022 Do you belong to any clubs o r organizations such as mandaen groups, unions, fraternal or athletic groups, or [...] and heating? Not hard at all 04/05/2023 [facility] [place] [facility] - Occupational Stress [...] your living situation today? I have a [facility] place to live 04/05/2023 Education Answer Date Recorded What is the highest level of school you have completed or the highest degree you have received? Bachelor's degree (e.g., BA, AB, BS) 06/21/2019 Sex and Gender Information Value Date Recorded Sex Assigned at Female 05/25/2018 8:31 PM COUNTY AUDITOR Gender Identity Female 05/25/2018 8:31 PM COUNTY AUDITOR Sexual Orientation Straight 05/25/2018 8: 31 PM COUNTY AUDITOR documented as of this encounter Last Filed Vital Signs Vital Sign Reading Time Taken Comments Blood Pressure 142/83 09/26/2023 2:46 PM CDT Pulse 69 09/26/2023 2:46 PM CDT Temperature - - Respiratory Rate - - Oxygen Saturation - - Inhaled Oxygen Concentration - - Weight 102 kg (224 lb 8.6 oz) 09/26/2023 2:46 PM CDT Height 170.4 cm (5' 7.09) 09/26/2023 2:46 PM CD T Body Mass Index 35.08 09/26/2023 2:46 PM CDT documented in this encounter Progress Notes * Mara Gan M.D., Ph.D. - 09/26/2023 3:00 PM CDT CHIEF COMPLAINT / REASON FOR VISIT Misti Peguero is a 68 y.o. female who presents for short interval follow-up clinical exam HISTORY OF PRESENT ILLNESS Since I last saw Ms. Peguero in March when the area of asymmetry in the left upper breast was observed with her sitting upright and with flexing of the pectoralis muscle, she has noticed no changes in either breast. The imaging at that time was quite reassuring. She is here at my request for short interval follow-up. The following portions of the patient's history were reviewed and updated as appropriate: allergies, current medications, family history, medical history, social history, surgical history, and problem list. Current Outpatient Medications on File Prior to Visit Medication Sig Dispense Refill acetaminophen (TYLENOL) 325 mg tablet Take 2 tablets (650 mg total) by mouth every 6 (six) hours asneeded for pain. (Patient taking differently: Take 1,000 mg by mouth every 6 (six) hours as needed for pain.) atenolol (TENORMIN) 50 mg tablet Take 1 tablet by mouth daily. calcium carbonate 1000 mg (400 mg calcium) chewable tablet Chew 1 tablet daily. cholecalciferol (VITAMIN D3) 2,000 Unit capsule Take 1 capsule by mouth daily. cranberry extract (CRAN-MAX) 500 mg capsule capsule Take 200 mg by mouth daily. ketoconazole (NIZORAL) 2 % cream Apply topically as directed. otic 15 g 2 ketoconazole (NIZORAL) 2 % shampoo Apply topically 3 (three) times a week. Apply to damp skin, lather, leave on 5 minutes, and rinse 120 mL 6 L.acidoph-L.bulg-B.bif-S.therm (BACID) 1 billion cell- 250 mg per tablet Take 1 tablet by mouth 2 (two) times a day with meals. levothyroxine (SYNTHROID, LEVOTHROID) 125 mcg tablet Take 125 mcg by mouth every morning before breakfast. 2 omeprazole (PriLOSEC) [address] capsule Take 1 capsule by mouth daily. psyllium (METAMUCIL) 0.52 gram capsule Take 0.52 g by mouth as needed. 2 in the evening triamcinolone (KENALOG) 0.1 % cream Apply 1 application topically 2 (two) times a day as needed (Rash). Otic. Apply to itchy areas in the ear twice daily as needed 60 g 1 No current facility-administered medications on file prior to visit. Allergies Allergen Reactions Penicillins Other (see comments) Pt not sure.....said something as a child Blood pressure 142/83, pulse 69, height 170.4 cm, weight 102 kg. Body mass index is 35.08 kg/m??. PHYSICAL EXAM General: Well-nourished, healthy-appearing woman in no apparent distress. Lymph nodes: No palpable cervical, supraclavicular, infraclavicular, or axillary adenopathy. Breast: Moderate to large and symmetric. Somewhat pendulous and ptotic. Nipples remain everted without discharge or lesions. No skin abnormalities on inspection. With her seated upright and with maneuvers specifically with her hands on her hips and with inward pressure for pectoral muscle activation, the visible asymmetry previously observed in the left upper slightly inner hi breast/upper chest wall is no longer visible nor palpable. The remainder of her clinical breast exam both supine and seated was entirely unremarkable. ASSESSMENT AND PLAN #1 Interval resolution of visible and palpable asymmetric finding in the high upper slightly inner breast/upper chest wall #2 Family history of breast cancer I reassured Ms. Peguero that her clinical breast exam is quite satisfactory and the finding from March is no longer evident. She has had some weight loss and I wonder if she had some fat tissue that was forming a little bit of a more prominent pocket that has reduced with a bit of weight loss. I will plan to see her back in March when she is due for her screening mammogram. I have given her a pink reminder card and asked her to call on December for scheduling purposes. All of her questions were addressed and she was very appreciative FINAL RECOMMENDATIONS: 1. Monthly self-breast health awareness, have any changes promptly evaluated. 2. Clinical breast exam and screening mammogram annually, next planned for March of 2024. Please call my appointment office on TuesdayDecember 19 for scheduling purposes. PATIENT EDUCATION: Ready to learn, no apparent learning barriers were identified; learning preferences include listening. Explained diagnosis and treatment plan; patient expressed understanding of the content. documented in this encounter Plan of Treatment Upcoming Encounters Date Type Department Care Team (Latest Contact Info) Description 11/29/2023 7:40 AM CDT Hospital Encounter Post Anesthesia Care Unit in [place], [place] [address] [place] [phone] Marcial Macdonald M.D. [address] [place] [phone] 11/29/2023 7:40 AM CDT - 11/29/2023 11:56 AM CDT Surgery [facility] MAIN OR [address] [place] [phone] Marcial Macdonald M.D. [address] [place] [phone] ROBOTIC-ASSISTED REPAIR HERNIA VENTRAL Scheduled Procedures Name Priority Associated Diagnoses Date/Ti me ROBOTIC-ASSISTED REPAIR MINOR IA VENTRAL Hernia Ventral 11/29/2023 7:40 AM CDT documented as of this encounter Visit Diagnoses Diagnosis Follow Up Exam- Primary Hernia Ventral documented in this encounter
--- OUTSIDE RECORDS SUMMARY | 2023-11-24 14:54 | XMS_ITS | Encounter Summary ---
Author Name Unknown Organization [facility] Address [address] [place] [address]. [place] [address] Care Team Providers Care Animal Ride Manager Name Role Phone Krista Mensah MD Primary Care Provider Linda Maciel MD Unavai lable Kinsey Washington MD Primary Care Provider + Wayne Cottrell APRN INSTALLMENT DEALER Unavailable [phone] Reason for Visit * Reason Onset Date Comments Same Day Appointment 05/11/2023 CPAP compli ances Encounter Details Date Type Department Care Team (Late st Contact Info) Description 05/11/2023 Telephone [facility] [address] [phone] Linda Maciel MD [address] [place] [address] Same Day Appointment (CPAP compliances ) Social History Tobacco Use Types Packs/Day Years [...] Sex Assigned at Female 06/12/2023 12:41 PM REFRACTORY REPAIRER Gender Identity Female 04/10/2021 1:29 PM CDT Sexual Orientation Straight 04/10/2021 1: 29 PM CDT documented as of this encounter Miscellaneous Notes * Telephone Encounter - Kris Rivera - 05/11/2023 10:54 AM CDT Reason for Call: Appointment Request Patient requesting this type of appt: CPAP compliances Requested provider: Any provider Reason patient unable to be scheduled: Not within requested timeframe When does patient want to be seen/preferred time: 06/11/23 to 08/11/23 Comments: Pt is ok with [facility] location in the month of June. Could we send this information to you in [facility] or would you prefer to receive a phone call?: Patient would prefer a phone call Okay to leave a detailed message?: Yes at Cell number on file: Telephone Information: Call taken on 05/11/2023 at 10:55 AM by Kris Rivera documented in this encounter Plan of Treatment Not on file documented as of this encounter Visit Diagnoses Not on filedocumented in this encounter Additional Health Concerns Assessment Noted Time PHQ-9 Depression Total Score: 3 06/15/20 18 1:12 PM REFRACTORY REPAIRER documented as of this encounter Care Teams Animal Ride Manager Relationship Specialty Start Date End Date Krista Mensah MD [address] [address] PCP - General 02/27/13 06/11/23 Kinsey Washington MD [address] [address] PCP - General 06/12/23 Linda Maciel MD [address] [place] [address] Assigned Sleep Provider 03/05/2307/08 Wayne Cottrell APRN INSTALLMENT DEALER [address] [address] Assigned Sleep Provider 07/09/23 documented as of this encounter
--- OUTSIDE RECORDS SUMMARY | 2023-11-24 14:54 | XMS_ITS | Encounter Summary ---
Author Name Unknown Organization [facility] Address [address] [place] [address]. [place] [address] Care Team Providers Care Retail Selling Specialist Name Role Phone Krista Mensah MD Primary Care Provider [phone] Linda Maciel MD Unavai lable Linda Maciel MD Unavai lable Kinsey Washington MD Primary Care Provider + Wayne Cottrell APRN PATIENT CONSUMER MARKETER Unavailable [phone] Encounter Details Date Type Department Care Team (Late st Contact Info) Description 02/19/2018 [facility] Medical Advice [address] [phone] Linda Maciel MD [address] [place] [address] Social History Tobacco Use Types Packs/Day Years Used Date Smoking Tobacco: Former Cigarettes Smokeless Tobacco: Never Alcohol Use Standard Drinks/Week Comments No 0 (1 standard drink = 0.6 oz pur e alcohol) Sex and Gender Information Value Date Recorded Sex Assigned at Female 06/12/2023 12:41 PM PANEL MACHINE TENDER Gender Identity Female 04/10/2021 1:29 PM CDT Sexual Orientation Straight 04/10/2021 1: 29 PM CDT documented as of this encounter Plan of Treatment Not on file documented as of this encounter Visit Diagnoses Not on filedocumented in this encounter Care Teams Retail Selling Specialist Relationship Specialty Start Date End Date Krista Mensah MD [address] [address] PCP - General 02/27/13 06/11/23 Kinsey Washington MD [address] [address] PCP - General 06/12/23 Linda Maciel MD [address] [place], [place] [address] Assigned Sleep Provider 05/09/20 Linda Maciel MD [address] [place], [place] [address] Assigned Sleep Provider 03/05/2307/08 Wayne Cottrell, [facility] [address] [place], [place] [address] Assigned Sleep Provider 07/09/23 documented as of this encounter
--- OUTSIDE RECORDS SUMMARY | 2023-11-24 14:54 | XMS_ITS | Encounter Summary ---
Author Name Unknown Organization [facility] Address [address] [place] [address] Care Team Providers Care Automation And Controls Supervisor Name Role Phone Krista Mensah MD Primary Care Provider Linda Maciel MD Unavai lable Kinsey Washington MD Primary Care Provider + Wayne Cottrell APRN GRIP Unavailable [phone] Encounter Details Date Type Department Care Team (Late st Contact Info) Description 03/09/2023 MyC Medical Advice [facility] [address] [phone] Cristina Rutledge CMA Social History Tobacco Use Types Packs/Day Years Used Date Smoking Tobacco: Former Cigarettes Q uit: 07/18/2000 Smokeless Tobacco: Never Alcohol Use Standard Drinks/Week Comments No 0 (1 standard drink = 0.6 oz pur e alcohol) PHQ-2 Answer Date Recorded PHQ-2 Score 0 03/02/2023 Sex and Gender Information Value Date Recorded Sex Assigned at Female 06/12/2023 12:41 PM DIRECTOR MATERNAL CHILD Gender Identity Female 04/10/2021 1:29 PM CDT Sexual Orientation Straight 04/10/2021 1: 29 PM CDT documented as of this encounter Plan of Treatment Not on file documented as of this encounter Visit Diagnoses Not on filedocumented in this encounter Additional Health Concerns Assessment Noted Time PHQ-9 Depression Total Score: 3 06/15/20 18 1:12 PM DIRECTOR MATERNAL CHILD documented as of this encounter Care Teams Automation And Controls Supervisor Relationship Specialty Start Date End Date Krista Mensah MD [address] [address] PCP - General 02/27/13 06/11/23 Kinsey Washington MD [facility] [address] [place] [address] PCP - General 06/12/23 Linda Maciel MD [address] [place] [address] Assigned Sleep Provider 03/05/2307/08 Wayne Cottrell APRN GRIP [address] [place], [place] [address] Assigned Sleep Provider 07/09/23 documented as of this encounter
--- OUTSIDE RECORDS SUMMARY | 2023-11-24 14:54 | XMS_ITS | Encounter Summary ---
Author Name Unknown Organization [place] Address [address] [place] [address] Care Team Providers Care Key Entry Operator Name Role Phone Krista Mensah MD Primary Care Provider Linda Maciel MD Unavai lable Linda Maciel MD Unavai lable Kinsey Washington MD Primary Care Provider + Wayne Cottrell APRN SR. LOGISTICS ANALYST Unavailable [phone] Encounter Details Date Type Department Care Team (Late st Contact Info) Description 04/01/2020 MyC Medical Advice [address] [address] Alona Torres LPN Social History Tobacco Use Types Packs/Day Years Used Date Smoking Tobacco: Former Cigarettes Q uit: 07/18/2000 Smokeless Tobacco: Never Alcohol Use Standard Drinks/Week Comments No 0 (1 standard drink = 0.6 oz pur e alcohol) Sex and Gender Information Value Date Recorded Sex Assigned at Female 06/12/2023 12:41 PM PATTERNMAKER BENCH Gender Identity Female 04/10/2021 1:29 PM CDT Sexual Orientation Straight 04/10/2021 1: 29 PM CDT documented as of this encounter Plan of Treatment Not on file documented as of this encounter Visit Diagnoses Not on filedocumented in this encounter Additional Health Concerns Assessment Noted Time PHQ-9 Depression Total Score: 3 06/15/20 18 1:12 PM PATTERNMAKER BENCH documented as of this encounter Care Teams Key Entry Operator Relationship Specialty Start Date End Date Krista Mensah MD [facility] [address] [place] [address] PCP - General 02/27/13 06/11/23 Kinsey Washington MD [facility] [address] [place] [address] PCP - General 06/12/23 Linda Maciel MD [address] [place], [place] [address] Assigned Sleep Provider 05/09/20 Linda Maciel MD [address] [place], [place] [address] Assigned Sleep Provider 03/05/2307/08 Wayne Cottrell APRN SR. LOGISTICS ANALYST [address] [place], [place] [address] Assigned Sleep Provider 07/09/23 documented as of this encounter
--- OUTSIDE RECORDS SUMMARY | 2023-11-24 14:54 | XMS_ITS | Encounter Summary ---
Author Name Unknown Organization [facility] Address [address] [place] [address] Care Team Providers Care Tape Transferrer Name Role Phone Unavailable Primary Care Provider Unavailabl e Reason for Visit * Reason Onset Date Comments Pre-visit Intake 08/29/2023 Encounter Details Date Type Department Care Team (Latest Contact Info) Description 08/29/2023 9:30 AM MODELING AGENT Clinical Communication Virtual Review in [address] [address] Pre-visit Intake Social History Tobacco Use Types [...] often do you attend chur ch or tenriism services? Never 03/08/2022 Do you belong to any clubs o r organizations such as uatsdin groups, unions, fraternal or athletic groups, or [...] and heating? Not hard at all 04/05/2023 [facility] - Occupational Stress Questionnaire Answer Date [...] your living situation today? I have a [facility] place to live 04/05/2023 Education Answer Date Recorded What is the highest level of school you have completed or the highest degree you have received? Bachelor's degree (e.g., BA, AB, BS) 06/21/2019 Sex and Gender Information Value Date Recorded Sex Assigned at Female 05/25/2018 8:31 PM MODELING AGENT Gender Identity Female 05/25/2018 8:31 PM MODELING AGENT Sexual Orientation Straight 05/25/2018 8: 31 PM MODELING AGENT documented as of this encounter Plan of Treatment Upcoming Encounters Date Type Department Care Team (Latest Contact Info) Description 11/29/2023 7:40 AM CDT Hospital Encounter Post Anesthesia Care Unit in [place], [place] [address] [place] [phone] Marcial Macdonald M.D. [address] [place] [phone] 11/29/2023 7:40 AM CDT - 11/29/2023 11:56 AM CDT Surgery [facility]IN OR [address] [place] [phone] Marcial Macdonald M.D. [address] [place] [phone] ROBOTIC-ASSISTED REPAIR HERNIA VENTRAL Scheduled Procedures Name Priority Associated Diagnoses Date/Ti me ROBOTIC-ASSISTED REPAIR MINOR IA VENTRAL Hernia Ventral 11/29/2023 7:40 AM CDT documented as of this encounter Visit Diagnoses Not on filedocumented in this encounter
== END 2023-11-24 14:52 | disposition home or self-care (01) ==
LOC: RAD 14:51
PROVIDERS: PCP Family Medicine; Visit Provider Family Medicine
DX: M85.80 Other specified disorders of bone density and structure, unspecified site (principal); M85.89 Other specified disorders of bone density and structure, multiple sites; N95.8 Other specified menopausal and perimenopausal disorders
CPT/HCPCS: 77080

== ENCOUNTER 2024-01-03 16:00 | Outpatient (RCR) | payer MEDICARE, BC, SELFPAY ==
--- NOTE | 2023-09-21 15:31 | PT.OPEX ---
PT [place] Out[facility] Eval PT [facility] Outpatient Eval Start: 09/21/23 09:36 Freq: Status: Active Protocol: Document 09/21/23 09:36 MLS (Rec: 09/21/23 15:29 MLS [id number]) E-signed By Lora Nice DPT Physical Therapy Outpatient Evaluation Insurance Information Recert Due Date 12/19/23 Insurance Name Medicare B,Blue Cross/Blue Shield Medical Diagnosis M54.50 LBP Treating Diagnosis Low back pain and tightness Referring MD Dr. Washington Subjective Subjective Patient is a 68 year old female who presents to physical therapy with signs and symptoms consistent with low back pain. She states that has been going on since 2018. She states that it has been intermittent in nature until the last few months, where it has been constant. She states that she had a flare up which seemed to never resolve. She states that she did 5 days of ibuprofen really helped and since stopping, the pain is back. She states that the pain is in the middle of her low back and radiate into both of her hips. She states that sometimes she will have numbness on the outside of her left foot goes numb. She can usually adjust her position to make it go away. She reports that she when she does a lot of cooking and turning in her kitchen, she gets numbness in both of her thighs and will go away with sitting . She states that she sleeps on her sides which bother her hips sometimes. She states that she walks and rides an indoor bike. She states that she walks 2-4 miles and lately the pain has been worse after the walking. Aggravating factors include: walking, standing, cooking, driving, sleeping, ADLS, getting inn/ out of car. Alleviating factors include: ibuprofen, heat. Significant past medical history includes nothing significant. She states that a lot of her lower extremity muscles are tender to the touch and sometimes gets a burning feeling. Patient would like to be able to do her ADLs without pain through physical therapy sessions. 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 Objective Other/Pertinent Objective Posture Assessment: increased lordosis LUMBAR ROM Flexion: 100% Extension: 75% with pain Right Sidebend: 75% Left Sidebend: 75% Right Rotation: 100% Left Rotation: 100% LE MMT Hip flexion: R 4/5 L 4/5 Hip Extension: R 4/5 L 4/5 Hip abduction: R 4-/5 L 4-/5 Knee extension: R 5/5 L 5/5 Knee Flexion: R 5/5 L 5/5 Dorsiflexion/heel walk: R 5/5 L 5/5 Plantarflexion/toe walk: R 5/5 L 5/5 JOINT MOBILITY/PALPATION Severe tightness and tenderness with palpation of bilateral QL and ES in prone position SPECIAL TESTS -Quadrant test: negative -Single leg stance: 10 second, no pain -Slump test: negative B -Straight leg raise: negative B -SNEHAL: negative B -FADIR: negative B TX: Access Code: [email or web address] URL: [email or web address] Date: 09/21/2023 Prepared by: Lora Nice Exercises - Supine Lower Trunk Rotation - 1 x daily - 7 x weekly - 3 sets - 10 reps - Supine Single Knee to Chest Stretch - 1 x daily - 7 x weekly - 3 sets - 10 reps - Supine Piriformis Stretch with Foot on Ground - 1 x daily - 7 x weekly - 3 sets - 10 reps Functional Test Performed & Score 17/50 Modified Oswestry Low Back Pain Questionnaire Assessment Assessment/Impression Pt is a 68 year old female who presents with concerns of low back pain. Patient also has notable objective findings including limited ROM, tenderness to palpation, and decreased strength which are also likely contributing to the problem. Patient is a good candidate for skilled therapy to target deficits described above. Skilled PT intervention is necessary for use of therapeutic exercise manual therapy, neuromuscular re- education, and therapeutic activity. Functional impairments include difficulty with: standing, walking, driving, exercising, ADLs and sleeping. See appropriate sections of PT eval for complete list of goals and POC . D/C plan and criteria is for pt to achieve the goals as listed below or until max rehab potential is met. Pt was agreeable with plan of care and goals established. Primary Functional Limitations standing walking driving exercising ADLs sleeping Plan of Care Rehabilitation Potential Good Physical Therapy Goals Within 10-12 weeks: 1.Pt will demonstrate independence in performance of home exercise program with the use of video and/or handouts in order to optimize functional mobility and reduce risk for re-injury. 2.Pt will demonstrate consistent HEP compliance to ensure progress in reaching established goals during course of care. 3.Patient will be able to sit at a computer for up to one hour without pain. 4.Patient will report pain levels <2/10 with all activities in order to improve functional mobility at home, work and during functional leisure activities. 5.Patient is able to sleep without waking more than one time due to pain in a 6-8 hour time frame. 6.Patient will be able to walk up to one mile without pain. 7.Patient will be able to bend and lift household items from the floor to shoulder height to perform ADLs without pain. 8.Pt will be able to ascend/ descend 1 flight of stairs in order to perform ADLs pain free. 9.Pt will exhibit 5 pt improvement in Modified Oswestry Outcome measure to demonstrate functional improvement and progress towards goals Coordination/Communication With Referral Source Treatment Plan/Direct Interventions Manual Therapy,Therapeutic Activities,Therapeutic Exercises Patient Will Be Discharged From Therapy Independently Progressing Evaluation Billing Untimed Code Treatment Minutes 30 Complexity Low Certification Information Physician Comment/Change : Physician NPI Number #
== END 2024-02-20 09:13 | disposition home or self-care (01) ==
PROVIDERS: PCP Family Medicine; Visit Provider Family Medicine
DX: M54.50 Low back pain, unspecified (principal); Z51.89 Encounter for other specified aftercare
CPT/HCPCS: 97110; 97140; 97161

== ENCOUNTER 2024-09-21 07:36 | Outpatient (CLI) | payer MEDICARE, BC, SELFPAY | END 2024-09-21 07:37 | disposition home or self-care (01) | LOC: NFLDREF 09-23 11:45 | PROVIDERS: PCP Family Medicine; Referring Provider Family Medicine; Visit Provider Family Medicine | DX: E78.5 Hyperlipidemia, unspecified (principal); E03.9 Hypothyroidism, unspecified; M81.0 Age-related osteoporosis without current pathological fracture; M85.80 Other specified disorders of bone density and structure, unspecified site | CPT/HCPCS: 80053; 80061; 82306; 84439; 84443 ==

== ENCOUNTER 2024-10-18 09:45 | Outpatient (RCR) | payer MEDICARE, BC, SELFPAY ==
--- NOTE | 2024-09-03 17:22 | PT.OPEX ---
PT [place] Outpatient Eval PT [facility] Outpatient Eval Start: 09/03/24 16:32 Freq: Status: Active Protocol: Document 09/03/24 16:32 SONIA (Rec: 09/03/24 17:17 SONIA [id number]) E-signed By Debbie Ireland DPT Physical Therapy Outpatient Evaluation Insurance Information Recert Due Date 12/02/24 Insurance Name Medicare B,Blue Cross/Blue Shield Medical Diagnosis R hip pain L hip pain LBP Treating Diagnosis bilateral hip pain R>L, LBP, limited tolerance for extended walking/stairs, core/hip/glut weakness with hx of chronic LB/hip pain Subjective Subjective Patient reports hx of chronic bilateral hip pain R>L and LBP . She reports ongoing pain issues over the last several years with prior PT treatment last year. She had follow up with her MD and xrays of her hips showed OA in both hips and her LB. Patient has increased hip pain with walking and reports limited tolerance for extended distances. She tries to walk regularly but now walking distances are limited to around 1 mile. She is active with traveling and has a trip to [place] [place] and [employer] scheduled for early October. Patient is hoping PT will help to decrease her pain and improve her walking tolerance for this trip. She noticed when she was out in [place] she walked better when she was pushing a stroller - less hip and back pain with support. She denies any recent falls. She does not use an AD. No prior back, hip, knee surgeries. She is using tylenol and ibuprofen as needed. Ice and heating pad also have been helpful. She has been doing some of her exercises from prior PT last year. Sleeping has been fine. Pain today rated 2/10 but can flare up to 6-7/10 with increased walking. Date of Last Physician Visit 08/02/24 Current Work Status Retired Precautions Treatment Precautions/Contraindications OA bilateral hips, lumbar spine Assessment Assessment/Impression Patient is a 69 year old female with bilateral hip pain R>L, LBP, limited tolerance for extended walking/stairs, core/hip/glut weakness with hx of chronic LB/hip pain. Patient reports 2/10 pain this session. Bilateral hip and back pain can flare up to 6-7/ 10 with extended walking. Patient reports her walking distances are limited by pain, if she over does it she needs a day or 2 to recover. Patient is active with traveling and wants to be able to walk with her family on a trip scheduled for early October . Bilateral hip ROM is WFL with general tightness, stiffness noted. Patient reports xrays showed OA in both hips. She reports R hip pain is usually worse than L but it fluctuates some. Patient with general core/hip/ glut weakness with hx of chronic LBP and bilateral hip pain. Patient is able to amb this session with minimal pain , normal gait with short distances. She reports having increased pain with increased distances so pain is limiting her walking. Patient shown walking sticks and SPC for ambulation. Demonstrated use of walking sticks and cane and then patient practiced this session. PT recommends she consider getting walking sticks or a SPC as her travel plans are in about 6 weeks and she may benefit from some support. She will consider. Able to initiate some exercises this session, HO issued for HEP. Patient would benefit from skilled PT for pain/sx management, core/hip/ glut/LE strengthening, gait training, and establishment of HEP. Plan of Care Rehabilitation Potential Good Physical Therapy Goals 1. Decrease bilateral hip pain and LBP to less than/ equal to 3/10 with daily activities and with the progression of PT activities over the next 4-6 weeks. 2. Patient will be educated, trained on use of walking sticks and SPC for decreased stress to bilateral hips and LB with walking for decreased bilateral hip pain and back pain and improved tolerance for extended walking as patient prepares for upcoming travel with her family. 3. Improve hip/glut/LE/core strength over the next 10-12 weeks for return decreased stress to bilateral hips/LB, decreased bilateral hip/LB pain, and improved tolerance for extended walking without flare up of pain. 4. Patient will be I with HEP within 12 weeks for progression toward above goals, ongoing self management of pain/sx, ongoing self improvements in bilateral hip/ LB mobility/strength, and for return to daily activities/standing/walking without flare up of pain. Coordination/Communication With Referral Source Treatment Plan/Direct Interventions Gait Training,Manual Therapy, Therapeutic Exercises Frequency/Duration 1x/week Patient Will Be Discharged From Therapy Completion of LTG(s),Skills Plateau,Independent w/HEP, Independently Progressing Evaluation Billing Untimed Code Treatment Minutes 25 Complexity Moderate Certification Information Initial Certification Date 09/03/24 Ending Certification Date 12/02/24 Provider Signature Required Yes Provider Signature Shows Agreement With POC & Medical Necessity Physician NPI Number Write NPI# Here Physician Comment/Change : Physician Signature & Date Requested Please Sign/Date Here
== END 2025-02-15 23:59 | disposition home or self-care (01) ==
PROVIDERS: PCP Family Medicine; Visit Provider Family Medicine
DX: M25.551 Pain in right hip (principal); M25.552 Pain in left hip; M54.50 Low back pain, unspecified; Z51.89 Encounter for other specified aftercare
CPT/HCPCS: 97110; 97116; 97140; 97162

== ENCOUNTER 2024-12-27 08:30 | Outpatient (CLI) | payer MEDICARE, BC, SELFPAY | END 2024-12-27 08:31 | disposition home or self-care (01) | LOC: NFLDREF 12-28 00:18 | PROVIDERS: PCP Family Medicine; Referring Provider Family Medicine; Visit Provider Family Medicine | DX: E78.5 Hyperlipidemia, unspecified (principal) | CPT/HCPCS: 80061 ==

== ENCOUNTER 2025-03-07 06:11 | Day surgery (SDC) | payer MEDICARE, BC, SELFPAY ==
[2025-03-06] MEDS: OXYCODONE (CR) 10 MG TAB.ER.12H PO (07:16)
[2025-03-06] MEDS: ACETAMINOPHEN 500 MG TABLET 1000 MG PO (07:16)
[2025-03-06] MEDS: CELECOXIB 200 MG CAPSULE PO (07:16)
[2025-03-07] VITALS (24 sets, daily range): BP systolic 110–178; BP diastolic 55–87; PULSE 47–77; RESP 12–21; TEMP 36–36.4; O2SAT 90–100; BMI 35.2
[2025-03-07] MEDS: LACTATED RINGERS 1000 ML 1,000 ML 100 ML IV ×2 (06:50→10:43)
[2025-03-07] MEDS: SODIUM CHLORIDE 0.9 % (FLUSH) 10 ML SYRINGE IVF (06:50)
--- NOTE | 2025-03-07 07:15 | CRLHL7_ITS ---
For Patients: As a result of the Cures Act, medical imaging exams and procedure reports are released immediately into your electronic medical record. You may view this report before your referring provider. If you have questions, please contact your health care provider. INDICATION: Post right hip arthroplasty TECHNIQUE: AP view of the pelvis as well as AP and lateral projections of the right hip COMPARISON: : Today`s intraoperative images FINDINGS: Immediate postop change of right total hip arthroplasty. Prosthetic components well-seated and aligned. IMPRESSION: : Postop change of right total hip arthroplasty without evidence of complication Dictated by Wayne Parks MD @ 03/11/2025 5:35:48 AM (Electronically Signed)
[2025-03-07] MEDS: MIDAZOLAM HCL 1 MG/ML inj IVP (07:22)
--- NOTE | 2025-03-07 07:23 | SUR.PREOP ---
TIME?OUT:?0721 PT/RN/MDA?VERIFICATION?OF?SURGICAL?SITE,?PROCEDURE,?AND?CONSENT OBTAINED?PRIOR?TO?INVASIVE?PROCEDURE.
--- NOTE | 2025-03-07 07:35 | SUR.PREOP ---
0705: Car Seat Coverer explained preop oral medications recommended by Dr. Burgess including 200 mg Celebrex. Patient's spouse, Michael, asked if she could take Ibuprofen instead stating his mother from a heart attack after taking Celebrex. Dr. Burgess notified and into speak with patient and spouse. Dr. Burgess explained his reasoning. Patient given option to take Celebrex or skip it. Patient verbalized understanding and gave verbal consent to take Celebrex. See eMAR.
[2025-03-07] MEDS: TRANEXAMIC ACID 100 MG/ML INJ 1000 MG IV (07:52)
--- NOTE | 2025-03-07 08:01 | P.ANES_ITS ---
Anesthesia Charges Start Date/Time Anesthesia Start Date: 03/07/25 Anesthesia Start Time: 07:30 Stop Date/Time Anesthesia Stop Date: 03/07/25 Anesthesia Stop Time: 10:00 Summary Extremes of Age - Over 70 or under 1: MDA Coding CPT Codes CPT Codes: ANESTH HIP ARTHROPLASTY - 89502 ([id number]) P2 - PATIENT W/MILD SYST DISEASE, QK - SPRING FORMER MACHINE 2-4 CNCRNT ANES PROC, QX - EXECUTIVE OFFICER SVC W/ MD MED DIRECTION Additional Codes: Summary - Extremes of Age - Over 70 or under 1: MDA ([id number])
--- NOTE | 2025-03-07 08:01 | W.PM.NB ---
Nerve Block Nerve Block Time Seen by Provider: 07:21 Date Seen: 03/07/25 Type of block requested by surgeon for post-operative analgesia: MICHELLE/LFCN Side: right Time out performed: Yes Verification of patient name: Yes Verification of date of : Yes Site marking: site marked Name of person performing procedure: Kendrick Continuous monitoring Was continuous monitoring of O2 sat, B/P, monitor worker, recorded every 15 minutes?: Yes Procedure Checklist: sterile prep, needles and gloves Ultrasound guided. Images saved: Yes Medications given in 5ml increments after negative aspiration: Ropivicaine %: 0.5 mL: 30 Needle gauge: 20 Precedex (mcg): 25 Patient tolerated procedure well: Yes Additional comments: Needle noted below psoas tendon needle noted adjacent to LFCN Block Charges Block Charge (with Pro Fee): Other Periph Nerve Block Use of Ultrasound Machine for Block: Yes- US Guidance/pain block
--- NOTE | 2025-03-07 08:01 | W.ANESCHARGE ---
Anesthesia Charges Start Date/Time Anesthesia Start Date: 03/07/25 Anesthesia Start Time: 07:30 Stop Date/Time Anesthesia Stop Date: 03/07/25 Anesthesia Stop Time: 10:00 Summary Extremes of Age - Over 70 or under 1: MDA Coding CPT Codes CPT Codes: ANESTH HIP ARTHROPLASTY - 88642 ([id number]) P2 - PATIENT W/MILD SYST DISEASE, QK - PHYSICIAN INDUSTRIAL 2-4 CNCRNT ANES PROC, QX - RIP SAW OPERATOR SVC W/ MD MED DIRECTION Additional Codes: Summary - Extremes of Age - Over 70 or under 1: MDA ([id number])
--- NOTE | 2025-03-07 09:25 | CRLHL7_ITS ---
For Patients: As a result of the Cures Act, medical imaging exams and procedure reports are released immediately into your electronic medical record. You may view this report before your referring provider. If you have questions, please contact your health care provider. INDICATION: Right post operative total hip arthroplasty, postoperative total hip arthroplasty TECHNIQUE: Pelvis radiograph, Hip radiograph 2 views right COMPARISON: 11/21/2024 FINDINGS: The sensitivity and specificity of the exam are moderately limited by the patient`s body habitus. Bone: No acute fractures or aggressive bone lesions are identified. The iliac crests are partially excluded. Joint: A right bipolar hip arthroplasty is noted. The visualized sacroiliac joints are unremarkable in appearance. The pubic symphysis is normal in appearance. Soft tissue: Lateral right subcutaneous gas and joint gas are present from recent surgery. No radiopaque foreign bodies are seen. IMPRESSION: There is an unremarkable postoperative appearance of the right hip arthroplasty. Dictated by: Osvaldo Castellon MD @ 03/11/2025 07:02:44 (Electronically Signed)
--- NOTE | 2025-03-07 09:27 | PM.ORPRC ---
Procedure Note Date of procedure: 03/07/25 Procedure: PREOPERATIVE DIAGNOSIS: Right hip osteoarthritis, class 2 obesity POSTOPERATIVE DIAGNOSIS: Right hip osteoarthritis, class 2 obesity NAME OF OPERATION: Right total hip arthroplasty SURGEON: Wallace Burgess MD DIRECTOR BEHAVIORAL HEALTH: Radha Morales PA-C, Arlette Moe PA-C IMPLANTS: 1. [employer] [place] # 52 sector ingrowth cup 2. 36 x 52 +4 neutral polyethylene 3. Actis # 7 standard collared ingrowth stem 4. 36 + 5 ceramic femoral head ANESTHESIA: General ESTIMATED BLOOD LOSS: 500 cc COMPLICATIONS: None SPECIMENS: None DRAINS: None PREOPERATIVE ANTIBIOTICS: Ancef 2 g INDICATIONS: The patient is a 69-year-old with a longstanding history of severe, unrelenting right hip pain secondary to end-stage right hip osteoarthritis. Despite appropriate nonoperative management, including activity modification, use of an assist device, anti-inflammatories, [id number] pain medication, physical therapy and injections, they continue to have pain and disability. Operative intervention was offered. The risks, benefits and expected outcomes were discussed in detail. These included but were not limited to: Infection, bleeding, injury to blood vessel or nerve, venous thromboembolism. All questions were answered to their satisfaction. Use of an middle school assistant principal was necessary throughout the case for patient positioning and safety, soft tissue retraction and closure. A modifier 22 should be added to this case. The patient weighs 103 kg with a BMI of 35. There was a 30 mm layer of adipose over the anterior hip joint. This made exposure more challenging and added time to complete the case. PROCEDURE: The patient was placed supine on the [place] table. General Anesthesia was administered. The middle school assistant principal made sure the patient was properly positioned. The right hip was prepped and draped in the usual sterile fashion. The image intensifier was brought in for a perfect AP pelvis and a perfect double tear drop AP view of each hip which were used for intraoperative templating with our fluoroscopic guide. A bikini incision was made parallel to the hip flexion crease. The middle school assistant principal retracted the soft tissues to protect them. Subcutaneous dissection was taken with electrocautery to the superficial fascia. The fascia was divided in line with the incision. Blunt dissection was carried medially to the tensor fascia saundra and sartorius interval. Deep dissection was carried with electrocautery. The circumflex vessels were cauterized and divided. The capsule was exposed and then divided in a T-fashion, tagged with #1 FiberWire sutures. Retractors were placed in the joint, held by the middle school assistant principal. The corkscrew was placed in the femoral head. The neck cut was made in the subcapital region. We made a second neck cut more distal. The napkin ring of bone was removed. The femoral head was removed intact. Acetabular retractors were placed, held by the middle school assistant principal. The labrum was sharply debrided. The capsule was released. The 43 mm reamer was used to the true medial wall. We then enlarged in 2 mm increments using the image intensifier for our reamer placement. We impacted the cup which had excellent purchase. We placed the polyethylene. Attention was then turned to the proximal femur. The limb was placed in 140 degrees of external rotation, maximum extension and adduction. The capsule was released to allow us to deliver the femur into the wound and complete the femoral side. Retractors were held by the middle school assistant principal throughout the femoral preparation. The box order person and canal finder were used. Broaches were used to a stable size. The calcar reamer was used. Trial components were placed. The hip was reduced and was found to be stable with appropriate soft tissue tension. Length and offset had been nicely restored using the image intensifier and our fluoroscopic guide. Trial components were removed. The stem was impacted. We placed the femoral head. Again, the hip was reduced and was found to be stable with appropriate soft tissue tension. Length and offset had been nicely restored. The middle school assistant principal did a three minute dilute Betadine solution soak. The middle school assistant principal irrigated the wound with 3 liters of normal saline via pulse lavage. The middle school assistant principal repaired the anterior capsule with a #1 Vicryl and our previously placed Ethibond sutures. The middle school assistant principal closed the fascia over the tensor fascia saundra with a #1 PDO Stratafix, subcutaneous tissues with 2-0 Vicryl, skin with a running 3-0 Stratafix and glue. A dry dressing was applied by the middle school assistant principal. Sponge and needle counts were correct x 2. The patient tolerated the procedure well; there were no apparent complications. They were awakened and extubated in the operating room, sent to the Post-Anesthesia Care Unit in satisfactory condition. PLAN: 1. The patient will be mobilized with physical therapy, weight-bearing as tolerates 2. Xarelto x 5 days then aspirin x 30 days will be used for DVT prophylaxis 3. The patient will be discharged once medically appropriate
--- NOTE | 2025-03-07 09:57 | P.ANES_ITS ---
Anesthesia Charges Start Date/Time Anesthesia Start Date: 03/07/25 Anesthesia Start Time: 07:30 Stop Date/Time Anesthesia Stop Date: 03/07/25 Anesthesia Stop Time: 10:00 Summary Extremes of Age - Over 70 or under 1: FITNESS SPECIALIST Coding CPT Codes CPT Codes: ANESTH HIP ARTHROPLASTY - 48646 ([id number]) P2 - PATIENT W/MILD SYST DISEASE, QK - FACTORY MANAGER 2-4 CNCRNT ANES PROC Additional Codes: Summary - Extremes of Age - Over 70 or under 1: FITNESS SPECIALIST ([id number])
--- NOTE | 2025-03-07 09:57 | W.ANESCHARGE ---
Anesthesia Charges Start Date/Time Anesthesia Start Date: 03/07/25 Anesthesia Start Time: 07:30 Stop Date/Time Anesthesia Stop Date: 03/07/25 Anesthesia Stop Time: 10:00 Summary Extremes of Age - Over 70 or under 1: CATERING AND EVENTS MANAGER Coding CPT Codes CPT Codes: ANESTH HIP ARTHROPLASTY - 29073 ([id number]) P2 - PATIENT W/MILD SYST DISEASE, QK - MATERIAL RECLAIMER 2-4 CNCRNT ANES PROC Additional Codes: Summary - Extremes of Age - Over 70 or under 1: CATERING AND EVENTS MANAGER ([id number])
--- NOTE | 2025-03-07 10:40 | SUR.PHASEI ---
patient met discharge criteria per anesthesia
[2025-03-07] MEDS: LACTATED RINGERS 1000 ML 1,000 ML 75 ML IV (10:44)
--- NOTE | 2025-03-07 11:21 | SUR.PHASEII ---
Patient resting on bed. VSS Pain 4/10 and going up per patient. Ice pack in place on right hip. Tolerating water and toast. Call light within reach. Spouse at the bedside.
--- NOTE | 2025-03-07 11:33 | SUR.PHASEII ---
Patient provided more water. Denies nausea. Lights off for comfort. Patient plans to rest prior to therapy. Denies any other needs at this time. VSS Spouse at the bedside and call light within reach.
[2025-03-07] MEDS: ACETAMINOPHEN 500 MG TABLET 1000 MG PO (13:03)
--- NOTE | 2025-03-07 13:27 | SUR.PHASEII ---
1245: Patient ambulatory with gait belt, walker, and stand by assist of two to bathroom. Patient successfully voided. Returned to recliner in room. VSS Tylenol due and administered-see eMAR. Discharge instructions reviewed. Questions answered. Call light within reach. Patient ready for therapy at 1:30 pm.
--- NOTE | 2025-03-07 13:38 | SUR.PHASEII ---
OT in room with patient and spouse.
--- NOTE | 2025-03-07 14:02 | SUR.PHASEII ---
PAtient to PT via wheelchair with spouse.
--- NOTE | 2025-03-07 15:17 | SUR.PHASEII ---
1445: Pt returned from PT via wheelchair. Pt successful in PT. VSS
== END 2025-03-07 15:19 | disposition home or self-care (01) ==
LOC: OR 06:13
PROVIDERS: PCP Family Medicine; Visit Provider Orthopaedic Surgery
PROC: (CPT 27130; principal; 2025-03-07 07:15)
DX: M16.11 Unilateral primary osteoarthritis, right hip (principal); G89.18 Other acute postprocedural pain; E66.812 Obesity, class 2; Z68.35 Body mass index [BMI] 35.0-35.9, adult
CPT/HCPCS: 27130; 01214; 36415; 64450; 73501; 76000; 76942; 86850; 86900; 86901; 97110; 97116; 97161; 97165; 97530; 97535; 99100; A9270; C1776; J0330; J0690; J1100; J2250; J2371; J2405; J2704; J2710; J2795; J3010; J3475; J3490; J7120

== ENCOUNTER 2025-04-04 10:00 | Outpatient (RCR) | payer MEDICARE, BC, SELFPAY ==
--- NOTE | 2025-03-15 10:30 | PT.OPEX ---
PT [facility] PT [facility] Outpatient Eval Start: 03/15/25 09:05 Freq: Status: Active Protocol: Document 03/15/25 09:05 NLR (Rec: 03/15/25 10:28 NLR [id number]) E-signed By Kathy Garcia DPT Physical Therapy Outpatient Evaluation Insurance Information Recert Due Date 06/13/25 Insurance Name Medicare B,Blue Cross/Blue [employer] Insurance Kinsey Washington MD Primary Information/Comments Medical Diagnosis Z96.641 Presence of R THO Treating Diagnosis M25.551 Pain in R hip M25.651 Stiffness R hip M62.551 R thigh weakness Referring MD Natan Burgess MD Subjective Preferred Name MISTI Subjective Misti arrives with her Michael one week s/p R total hip arthroplasty with Dr. Burgess. She is walking with a FWW that is a bit low for her. She states she is doing well at home with no specific notable issues other than soreness and fatigue. Pain Comments 10 on oxycodone - pain is achy at her thigh kind of deep. 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 She lives with her Michael - they live in a multilevel home but everything is on one floor. She doesn't need to go to the basement, there is a ramp into the house and laundry is on the main level. They have a roll in shower with grab bars and she has a shower bench. She is able to shower on her own. She has a toilet commode with arm rests over the toilet. No carpet, no throw rugs. She is normally quite active - goes to meetings/coffee etc. She would walk several miles per day (up to 4 miles). She started using a cane in October due to hip pain. She has a FWW and a cane. Precautions Weight Bearing Weight Bear as Tolerated Status Therapy Limitations/ Not Limited Systems Review Objective Other/Pertinent THO APPROACH: Anterior Objective ROM: RIGHT hip flexion 5-90; LEFT hip flexion 0-100 STRENGTH: RIGHT thigh 3+/5; LEFT thigh 5/5 POSTURE: Upright PALPATION: Patient exhibits tenderness to palpation at incision, anterior thigh, lateral thigh EDEMA: Mild FUNCTIONAL: Sit to/from stand modified independent; sit to/from supine modified independent; bed mobility modified independent; self-dressing modified independent except socks, uses slip on shoes GAIT: modified with FWW FOOTWEAR: Patient arrives wearing Sketchers slip-ons. This is her normal shoe choice. She doesn't wear shoes in the house. EQUIPMENT: Patient has FWW, SPC Assessment Assessment/ Misti is a 69-year-old female who presents for Impression skilled PT evaluation presenting with right hip pain, stiffness and thigh weakness which is consistent with R anterior approach THO in the setting of R advanced hip OA. Patient is an appropriate candidate for skilled physical therapy to target deficits described above. Skilled PT intervention is necessary to achieve goals as stated. D/C plan and criteria is for patient to achieve the goals as outlined or until max rehab potential is met. Patient was agreeable with plan of care and goals established. This evaluation is of low complexity due to the stable nature of the patient?s presentation as well as the low comorbidities and medical factors included in this evaluation. Primary Functional Difficulty walking without gait aid, difficulty doing Limitations stairs without gait aid Plan of Care Rehabilitation Good Potential Rehabilitation Patient is otherwise healthy and motivated to improve Potential Comments in order to return to prior level of function. Physical Therapy 1. Patient will be independent with home exercise Goals program as instructed, modified and progressed by physical therapist in order to be independently and actively participating in their rehabilitation and return to prior level of function. Goal to be achieved by 06/07/2025. 2. Patient will demonstrate ability to walk for 30 minutes(s) without significant increase in pain greater than 2/10 to allow patient to be able to safely and independently return to participation in desired level of function with daily activities such walking for exercise without pain or difficulty. Goal to be achieved by 06/07/2025. 3. Patient will ascend/descend 2 full flight(s) of stairs with [id number] pattern without significant increase in difficulty or pain over 2/10 allowing for safe and independent mobility through their home/work environment. Goal to be achieved by 06/07/2025. Coordination/ Referral Source Communication With Treatment Plan/ Gait Training,Manual Therapy,Neuromuscular Re-ed,Self- Direct Interventions Care/Home Management,Therapeutic Activities,Therapeutic Exercises Frequency/Duration 1X/week for 4-6 weeks Patient Will Be Completion of LTG(s),Skills Plateau,Independent w/HEP, Discharged From Independently Progressing Therapy Discharge Plan DC with HEP Comments Evaluation Billing Untimed Code 15 Treatment Minutes PT Eval No Charge No Complexity Low Certification Information Initial 03/15/25 Certification Date Ending Certification 06/13/25 Date Provider Signature Yes Required Provider Signature POC & Medical Necessity Shows Agreement With Physician NPI Number Write NPI# Here Physician Comment/ : Change Physician Signature Please Sign/Date Here & Date Requested
== END 2025-04-11 14:19 | disposition home or self-care (01) ==
PROVIDERS: PCP Family Medicine; Visit Provider Orthopaedic Surgery
DX: Z47.1 Aftercare following joint replacement surgery (principal); Z96.641 Presence of right artificial hip joint; Z51.89 Encounter for other specified aftercare
CPT/HCPCS: 97110; 97161